=== PATIENT | male | born 1945 | race Caucasian/White ===

== ENCOUNTER 2020-07-07 12:10 | Emergency (ER) | payer MEDICARE, SELFPAY ==
--- NOTE | ~2020-07-07 | XR_ITS ---
EXAMINATION: XR chest 1V DATE: 07/07/2020 13:23 INDICATION: Hypertension. Arm pain. TECHNIQUE: PA view of the chest was obtained. COMPARISON: Chest radiograph dated 11/10/2010 FINDINGS: Small calcified nodule at the lateral right midlung zone consistent with old granulomatous disease. N o focal airspace opacities, pulmonary edema, pleural effusion or pneumothorax. The cardiomediastinal silhouette is normal. Prominent hypertrophic change at the bilateral acromioclavicular joints and at the right first costomanubrial articulation. Mild lower thoracic levocurvature. IMPRESSION: 1. No acute cardiopulmonary disease. Reviewed, dictated and finalized at location A. GN PRINTER BALLOON
--- NOTE | ~2020-07-07 | XR_ITS ---
XR_CERV2-3V_CR DATE: 07/07/2020 13:23 INDICATION: Neck pain radiating to left arm TECHNIQUE: AP, open-mouth, odontoid and lateral views COMPARISON: None FINDINGS: There is straightening of the cervical spine. Diffuse osteopenia. C1 and C2 are normally aligned and the odontoid process is intact. No fracture or dislocation or lock ed facet or prevertebral soft tissue swelling. There is minimal anterolisthesis at C4-5. There is degenerative spurring of the mid and lower cervica l spine but the cervical interspaces are well preserved. There is extensive degenerative change of the apophyseal joints of the cervical spine. Uncovertebral joint spurring is noted at C5-6. IMPRESSION: Straightening Diffuse osteopenia Degenerative changes involving particularly the apophyseal joints throughout the cervical spine and u ncovertebral joints at C5-6 Reviewed, dictated and finalized at [facility]. Reviewed, dictated and finalized at location A. TECH IMPRESSION: Straightening Diffuse osteopenia Degenerative changes involving particularly the apophyseal joints throughout th e cervical spine and uncovertebral joints at C5-6
[2020-07-07 12:24] VITALS: BP 149/63; PULSE 56; RESP 18; TEMP 36.6; O2SAT 97
--- NOTE | 2020-07-07 12:27 | ECG_ITS ---
Measurements Intervals [place] Rate: 55 P: 36 NV: 170 QRS: 29 QRSD: 84 T: 60 QT: 379 QTc: 364 Interpretive Statements SINUS BRADYCARDIA BORDERLINE ST-T WAVE ABNORMALITY- HIGH LATERAL LEADS BASELINE WANDER- I, II BORDERLINE ECG Electronically Signed On 07-07-2020 14:30:51 FIRER BOILER by Desean Diaz D.O.
--- NOTE | 2020-07-07 12:58 | ED.GENADULT ---
HPI - General Adult General Chief complaint: Extremity Problem,Nontraumatic Stated complaint: left arm pain Time Seen by Provider: 07/07/20 12:28 History of Present Illness HPI narrative: Patient is a 75-year-old male who presents to the ER with left arm pain. Occurring for the last 3 days. Intermittent and last 2 seconds at a time. Starts in the forearm and radiates up. No exertional component. Occurs at rest. Also reports that it occurs when he moves his arm at times. No known trauma. Denies any relief with Tylenol. No chest pain or chest pressure. He is on peritoneal dialysis. Reports he excellently inserted some air into his line about a week ago and felt some discomfort in his right shoulder but that was different than this. He has had no additional dialysis issues. Related Data Allergies Allergy/AdvReac Type Severity Reaction Status Date / Time Penicillins Allergy Mild Verified 02/15/17 18:13 Review of Systems Review of Systems: All systems reviewed & are unremarkable except as noted in HPI and below Constitutional: Constitutional: Denies chills, Denies fever(s) and Denies weakness ENT: Denies nasal congestion and Denies sore throat Cardiovascular: Cardiovascular: Denies chest pain, Denies rapid heart rate and Denies radiating jaw, neck or arm pain Respiratory: Respiratory: Denies cough, Denies dyspnea and Denies wheezing Gastrointestinal: Gastrointestinal: Denies abdominal pain, Denies nausea and Denies vomiting Musculoskeletal: Musculoskeletal: Denies arthralgias, Denies joint swelling and Reports muscle cramps PMFSH Past Medical History Medical History (Updated 07/07/20 @ 15:11 by Carlos Ureña MD) ESRD (end stage renal disease) Hyperlipidemia Hypertension Peritoneal dialysis catheter in place Social History Social History (Updated 07/07/20 @ 13:08 by Carlos Ureña MD) Smoking status: Never smoker Exam Narrative: Exam Narrative: GENERAL: Well-appearing, well-nourished, and in no acute distress. HEAD: Normocephalic, atraumatic. NECK: Supple. Mild left paraspinal muscular tenderness. CHEST: Clear to auscultation. No respiratory distress. HEART: Bradycardic and regular. Normal peripheral pulses. ABDOMEN: Soft, nontender, nondistended. Back: No midline or paraspinal tenderness. EXTREMITIES: Normal range of motion. No edema. NEURO: Alert and oriented x3. PSYCH: Normal mood and affect. Course Course Emergency Course: Patient resting comfortably, no additional concerns. No recurrence of pain here. Informed of results. reports he is taking medication to lower his potassium at home. Instructed her to discontinue the medication and contact his nurseryperson. Verbalized understanding. Discharge home. Vital Signs Vital signs: Vital Signs Temperature 97.9 F 07/07/20 12:24 Pulse Rate 56 L 07/07/20 12:24 Respiratory Rate 18 07/07/20 12:24 Blood Pressure 149/63 H 07/07/20 12:24 Pulse Oximetry 97 07/07/20 12:24 Temperature 97.9 F 07/07/20 12:24 Pulse Rate 56 L 07/07/20 14:57 Respiratory Rate 18 07/07/20 14:57 Blood Pressure 132/78 07/07/20 14:57 Pulse Oximetry 99 07/07/20 14:57 Medical Decision Making Vital Signs Vital Signs: Vital Signs Temperature 97.9 F 07/07/20 12:24 Pulse Rate 56 L 07/07/20 12:24 Respiratory Rate 18 07/07/20 12:24 Blood Pressure 149/63 H 07/07/20 12:24 Pulse Oximetry 97 07/07/20 12:24 Temperature 97.9 F 07/07/20 12:24 Pulse Rate 56 L 07/07/20 14:57 Respiratory Rate 18 07/07/20 14:57 Blood Pressure 132/78 07/07/20 14:57 Pulse Oximetry 99 07/07/20 14:57 Lab Data Labs: Lab Results 07/07/20 07/07/20 07/07/20 Range/Units 12:45 12:45 12:45 WBC 6.9 (4.5-10.0) K/mm3 RBC 2.58 L (4.6-6.20) M/mm3 Hgb 8.3 L (14.0-18.0) g/dL Hct 25.6 L (42.0-52.0) % MCV 99.2 (80-100) fl MCH 32.2 (26-34) pg MCHC 32.4 (32-36) g/dl RDW 13.9 (11.5-14.5) %
[2020-07-07 13:04] LABS: Carbon Dioxide 30 mmol/L (22-30); Chloride 101 mmol/L (98-107)
[2020-07-07 13:08] LABS: Anion Gap 8 mmol/L (8-16); Blood Urea Nitrogen 62 mg/dL (9-20); Calcium 9.3 mg/dL (8.4-10.2); Estimated CRCL calculation 5 ml/min; Estimated Glomerular Filt Rate 5; Glucose 149 mg/dL (75-110); Sodium 139 mmol/L (137-145)
[2020-07-07 13:19] LABS: Troponin I 0.017 ng/mL (0.000-0.034)
[2020-07-07 13:21] LABS: Basophils Percent Auto 0.3 % (0.2-1.2); Eosinophils Absolute Auto 0.2 K/mm3 (0-0.3); Eosinophils Percent Auto 2.6 % (0-4.4); Hematocrit 25.6 % (42.0-52.0); Hemoglobin 8.3 g/dL (14.0-18.0); Immature Granulocyte Absolute 0.03 K/mm3 (0.00-0.031); Immature Granulocyte Percent A 0.4 % (0-0.5); Lymphocytes Absolute Auto 1.37 K/mm3 (0.9-3.2); Lymphocytes Percent Auto 19.8 % (18.3-44.2); Mean Corpuscular HGB Conc 32.4 g/dl (32-36); Mean Corpuscular Hemoglobin 32.2 pg (26-34); Mean Corpuscular Volume 99.2 fl (80-100); Monocytes Absolute Auto 0.5 K/mm3 (0.1-0.6); Monocytes Percent Auto 7.5 % (2.6-8.5); Neutrophils Absolute Auto 4.8 K/mm3 (1.3-6.7); Neutrophils Percent Auto 69.4 % (45.5-73.1); Platelet Count Result 188 k/mm3 (150-375); Red Blood Count 2.58 M/mm3 (4.6-6.20); Red Cell Distribution Width 13.9 % (11.5-14.5); White Blood Count 6.9 K/mm3 (4.5-10.0)
[2020-07-07 13:24] LABS: Prothrombin Time 14.2 Seconds (11.1-14.7)
[2020-07-07 13:25] LABS: Partial Thromboplastin Time 28.7 SECONDS (22.3-36.8)
[2020-07-07 14:57] VITALS: BP 132/78; PULSE 56; RESP 18; O2SAT 99
[2020-07-07 15:43] VITALS: BP 147/68; PULSE 55; RESP 18; O2SAT 99
== END 2020-07-07 15:44 | disposition home or self-care (01) ==
PROVIDERS: Emergency Provider Emergency Medicine
DX: E87.6 Hypokalemia (principal); D64.9 Anemia, unspecified; M54.12 Radiculopathy, cervical region; R00.1 Bradycardia, unspecified; I12.0 Hypertensive chronic kidney disease with stage 5 chronic kidney disease or end stage renal disease; N18.6 End stage renal disease; Z99.2 Dependence on renal dialysis
CPT/HCPCS: 36415; 71045; 72040; 80048; 84484; 85025; 85610; 85730; 93005; 99284

== ENCOUNTER 2020-07-28 16:56 | Emergency (ER) | payer MEDICARE, SELFPAY ==
[2020-07-28] VITALS (8 sets, daily range): BP systolic 152–176; BP diastolic 70–87; PULSE 63–67; RESP 14–20; TEMP 37.2; O2SAT 96–97
--- NOTE | ~2020-07-28 | XR_ITS ---
EXAMINATION: XR chest 2V DATE: 07/28/2020 17:35 INDICATION: Shortness of breath TECHNIQUE: AP and lateral views of the chest are obtained. COMPARISON: 07/07/2020 FINDINGS: There are airspace opacities of the lung bases and left midlung zone. There is no pleural e ffusion or pneumothorax. The cardiomediastinal silhouette is normal. There is moderate thoracic spond ylosis. A calcified nodule of the right upper lobe is consistent with old granulomatous disease. IMPRESSION: 1. Airspace opacities of the lung bases and left midlung zone which could reflect atelectasis versus pneumonia versus pulmonary edema. Reviewed, dictated and finalized at location A. CAR OPERATOR IMPRESSION: 1. Airspace opacities of the lung bases and left midlung zone which could refle ct atelectasis versus pneumonia versus pulmonary edema.
--- NOTE | 2020-07-28 17:05 | ECG_ITS ---
Measurements Intervals [place] Rate: 64 P: 15 AR: 159 QRS: -5 QRSD: 90 T: 67 QT: 322 QTc: 333 Interpretive Statements SINUS RHYTHM BASELINE ARTIFACT- II, III, AVL, AVF, V5-V6 NORMAL ECG Electronically Signed On 07-28-2020 17:18:03 ALARM FIELD TECHNICIAN by Desean Diaz D.O.
[2020-07-28 17:24] LABS: Eosinophils Percent Auto 0.4 % (0-4.4); Hematocrit 28.7 % (42.0-52.0); Hemoglobin 9.4 g/dL (14.0-18.0); Immature Granulocyte Absolute 0.01 K/mm3 (0.00-0.031); Immature Granulocyte Percent A 0.4 % (0-0.5); Lymphocytes Absolute Auto 0.93 K/mm3 (0.9-3.2); Lymphocytes Percent Auto 33.8 % (18.3-44.2); Mean Corpuscular HGB Conc 32.8 g/dl (32-36); Mean Corpuscular Hemoglobin 30.9 pg (26-34); Mean Corpuscular Volume 94.4 fl (80-100); Mean Platelet Volume 10.5 fl (7.4-10.4); Monocytes Absolute Auto 0.3 K/mm3 (0.1-0.6); Monocytes Percent Auto 10.2 % (2.6-8.5); Neutrophils Absolute Auto 1.5 K/mm3 (1.3-6.7); Neutrophils Percent Auto 55.2 % (45.5-73.1); Platelet Count Result 135 k/mm3 (150-375); Red Blood Count 3.04 M/mm3 (4.6-6.20); Red Cell Distribution Width 13.5 % (11.5-14.5); White Blood Count 2.8 K/mm3 (4.5-10.0)
[2020-07-28 17:38] LABS: Anion Gap 7 mmol/L (8-16); Blood Urea Nitrogen 74 mg/dL (9-20); Calcium 8.7 mg/dL (8.4-10.2); Carbon Dioxide 29 mmol/L (22-30); Chloride 97 mmol/L (98-107); Estimated CRCL calculation 3 ml/min; Estimated Glomerular Filt Rate 4; Glucose 128 mg/dL (75-110); Potassium 3.5 mmol/L (3.4-5.0); Sodium 133 mmol/L (137-145)
--- NOTE | 2020-07-28 20:09 | ED.GENADULT ---
HPI - General Adult General Chief complaint: Shortness of Breath/Dyspnea <Reema Casillas PA-C - Last Filed: 07/28/20 20:26> Stated complaint: SOB <Reema Casillas PA-C - Last Filed: 07/28/20 20:26> Time Seen by Provider: 07/28/20 18:37 <Reema Casillas PA-C - Last Filed: 07/28/20 20:26> Source: patient <GUERRERO Becker Last Filed: 07/28/20 20:26> Mode of arrival: ambulatory <GUERRERO Becker Last Filed: 07/28/20 20:26> Limitations: no limitations <GUERRERO Becker Last Filed: 07/28/20 20:26> History of Present Illness HPI narrative: Patient in end-stage renal failure presents with chief complaint of feeling short of breath today and speaking with his dialysis nurse who instructed him to present to the emergency department for evaluation. Patient normally does home peritoneal dialysis and is due for treatment today. He states he however came to the emergency department before completing his treatment as he wanted to be evaluated. Patient states he is also noticed having some fatigue with exertion. He denies swelling to his extremities, chest pain, fever, chills nausea vomiting or diarrhea. Patient denies loss of taste or smell. <Reema Casillas PA-C - Last Filed: 07/28/20 20:26> Related Data Allergies/adverse reactions: Allergies Allergy/AdvReac Type Severity Reaction Status Date / Time Penicillins Allergy Mild Unknown Verified 07/28/20 18:40 <Reema Casillas PA-C - Last Filed: 07/28/20 20:26> Review of Systems Review of Systems: Narrative: CONSTITUTIONAL: Reports fatigue denies fever, chills, or sweats. EYES: Denies visual changes, redness, or discharge. ENT: Denies rhinorrhea, congestion, sore throat, or otalgia. CARDIOVASCULAR: Denies chest pain, palpitations, or edema. RESPIRATORY: Reports dyspnea worse with exertion denies cough GASTROINTESTINAL: Denies abdominal pain, nausea, vomiting, or diarrhea. GENITOURINARY: Denies dysuria or hematuria. SKIN: Denies rash or itching. MUSCULOSKELETAL: Denies back pain, joint pain, or myalgia. NEUROLOGIC: Denies headache, numbness, dizziness, or weakness. PSYCHIATRIC: Denies anxiety or depression. <Reema Casillas PA-C - Last Filed: 07/28/20 20:26> PMFSH Past Medical History Medical History: Medical History (Updated 07/28/20 @ 20:16 by Reema Casillas PA-C) ESRD (end stage renal disease) Hyperlipidemia Hypertension Peritoneal dialysis catheter in place <Reema Casillas PA-C - Last Filed: 07/28/20 20:26> Social History Social History: Social History (Updated 07/07/20 @ 13:08 by Carlos Ureña MD) Smoking status: Never smoker <Reema Casillas PA-C - Last Filed: 07/28/20 20:26> Exam Narrative: Exam Narrative: GENERAL: Well-appearing, well-nourished, and in no acute distress. HEAD: Normocephalic, atraumatic. EYES: PERRLA and EOMI. NECK: Supple. No adenopathy or masses. CHEST: Clear to auscultation, slightly less air movement lower left. No respiratory distress. No crackles wheezes rales or rhonchi HEART: Regular rate and rhythm. No murmur heard. Normal peripheral pulses. ABDOMEN: Peritoneal dialysis cath noted to abdomen. No abdominal tenderness with palpation.soft, nontender, nondistended, normal active bowel sounds. EXTREMITIES: Normal range of motion. No edema. SKIN: Warm, dry, no rash. NEURO: No focal deficits. Alert and oriented x3. PSYCH: Normal mood and affect. <Reema Casillas PA-C - Last Filed: 07/28/20 20:26> Course Vital Signs Vital signs: Vital Signs Temperature 99.0 F 07/28/20 17:03 Pulse Rate 65 07/28/20 17:03 Respiratory Rate 18 07/28/20 17:03 Blood Pressure 154/70 H 07/28/20 17:03 Pulse Oximetry 96 07/28/20 17:03 Temperature 99.0 F 07/28/20 17:03 Pulse Rate 64 07/28/20 19:24 Respiratory Rate 14 07/28/20 19:24 Blood Pressure 152/85 H 07/28/20 19:24 Pulse Oximetry 97 07/28/20 19:24 <Reema Casillas PA-C - Last Filed
== END 2020-07-28 20:41 | disposition home or self-care (01) ==
PROVIDERS: Emergency Provider General Practice
DX: J18.9 Pneumonia, unspecified organism (principal); I12.0 Hypertensive chronic kidney disease with stage 5 chronic kidney disease or end stage renal disease; N18.6 End stage renal disease; Z99.2 Dependence on renal dialysis
CPT/HCPCS: 36415; 71046; 80048; 85025; 93005; 99284

== ENCOUNTER 2021-01-05 17:43 | Emergency (ER) | payer MEDICARE, SELFPAY ==
--- NOTE | ~2021-01-05 | XR_ITS ---
EXAMINATION: XR elbow LT min 3V EXAM DATE: 01/05/2021 18:50 INDICATION: Pain swelling post Lt elbow; no recent injury. Reportedly history of multiple elbow fract ures. TECHNIQUE: Left elbow frontal, lateral with flexion, and oblique projections obtained and reviewed. There is no prior study for comparison. FINDINGS: There is moderate left elbow osteoarthritis, probably secondary to trauma, prior fractures . There is evidence of large elbow joint effusion. There are no acute fractures identified. No radiop aque foreign bodies identified. IMPRESSION: 1. Large left elbow joint effusion. 2. Moderate osteoarthritis. Reviewed, dictated and finalized at location A.
[2021-01-05 18:15] VITALS: BP 134/90; PULSE 63; RESP 14; TEMP 37.3; O2SAT 99
[2021-01-05] MEDS: predniSONE 20 MG TABLET 40 MG PO (18:56)
[2021-01-05] MEDS: COLCHICINE 0.6 MG TABLET 1.2 MG PO (18:56)
[2021-01-05 19:18] LABS: Basophils Percent Auto 0.3 % (0.2-1.2); Eosinophils Absolute Auto 0.2 K/mm3 (0-0.3); Eosinophils Percent Auto 2.9 % (0-4.4); Hematocrit 29.1 % (42.0-52.0); Hemoglobin 9.3 g/dL (14.0-18.0); Immature Granulocyte Absolute 0.02 K/mm3 (0.00-0.031); Immature Granulocyte Percent A 0.3 % (0-0.5); Lymphocytes Percent Auto 25.1 % (18.3-44.2); Mean Platelet Volume 10.4 fl (7.4-10.4); Monocytes Absolute Auto 0.8 K/mm3 (0.1-0.6); Monocytes Percent Auto 9.6 % (2.6-8.5); Neutrophils Absolute Auto 4.9 K/mm3 (1.3-6.7); Neutrophils Percent Auto 61.8 % (45.5-73.1); Platelet Count Result 164 k/mm3 (150-375); Red Blood Count 2.91 M/mm3 (4.6-6.20)
[2021-01-05 19:31] LABS: Anion Gap 11 mmol/L (8-16); Blood Urea Nitrogen 75 mg/dL (9-20); CRP 0.7 mg/dL (<1.0); Calcium 9.2 mg/dL (8.4-10.2); Carbon Dioxide 22 mmol/L (22-30); Chloride 104 mmol/L (98-107); Estimated CRCL calculation 4 ml/min; Estimated Glomerular Filt Rate 4; Glucose 181 mg/dL (75-110); Potassium 4.9 mmol/L (3.4-5.0); Sodium 137 mmol/L (137-145); Uric Acid 4.5 mg/dL (3.5-8.5)
[2021-01-05 19:41] LABS: Erythrocyte Sedimentation Rate 84 mm/hr (0-20)
--- NOTE | 2021-01-05 19:57 | ED.GENADULT ---
HPI - General Adult General Chief complaint: Extremity Problem,Nontraumatic Stated complaint: elbow swelling Time Seen by Provider: 01/05/21 18:24 Source: patient, family and RN notes reviewed Mode of arrival: ambulatory Limitations: no limitations History of Present Illness HPI narrative: Patient is a 75-year-old male who presents with bilateral elbow issues patient notes that he woke today with a swollen tender right posterior elbow also noting a swollen left elbow joint denies any injury or trauma or similar occurrence in the past has not taken anything for his symptoms patient notes that the left elbow is more swollen and tender patient has not taken anything for his symptoms Related Data Allergies Allergy/AdvReac Type Severity Reaction Status Date / Time Penicillins Allergy Mild Unknown Verified 01/05/21 18:28 Review of Systems Review of Systems: All systems reviewed & are unremarkable except as noted in HPI and below PMFSH Past Medical History Medical History ESRD (end stage renal disease) Hyperlipidemia Hypertension Peritoneal dialysis catheter in place Social History Social History Smoking status: Never smoker Exam Narrative: Exam Narrative: GENERAL: Well-appearing, well-nourished, and in no acute distress. HEAD: Normocephalic, atraumatic. EYES: PERRLA and EOMI. ENT: Nares clear, no rhinorrhea or epistaxis. Mucous membranes moist. CHEST: Clear to auscultation. No respiratory distress. No wheezes rales or rhonchi HEART: Regular rate and rhythm. No murmur heard. Normal peripheral pulses. EXTREMITIES: Tenderness and swelling of the left elbow joint without any erythema or warmth to touch. Tenderness and swelling of the left olecranon without erythema or warmth to touch SKIN: Warm, dry, no rash. NEURO: No focal deficits. Alert and oriented x3. Neurovascularly intact. Capillary refill less than 2 seconds PSYCH: Normal mood and affect. Course Course Emergency Course: Patient evaluated the emergency department for bilateral elbow issues 1 which is olecranon bursitis the other which is a swollen elbow joint with history of prior fracture and osteoarthritis. Neither elbow joint is erythematous. 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 Patient is agreeing with this plan Consultations Consultation #1: Discussed case with Dr. Loja orthopedic surgeon who agrees we can have the patient follow-up on outpatient basis provided with reasons to return Date: 01/05/21 Time: 20:39 Vital Signs Vital signs: Vital Signs Temperature 99.1 F 01/05/21 18:15 Pulse Rate 63 01/05/21 18:15 Respiratory Rate 14 01/05/21 18:15 Blood Pressure 134/90 01/05/21 18:15 Pulse Oximetry 99 01/05/21 18:15 Temperature 99.1 F 01/05/21 18:15 Pulse Rate 63 01/05/21 18:15 Respiratory Rate 14 01/05/21 18:15 Blood Pressure 134/90 01/05/21 18:15 Pulse Oximetry 99 01/05/21 18:15 Medical Decision Making Vital Signs Vital Signs: Vital Signs Temperature 99.1 F 01/05/21 18:15 Pulse Rate 63 01/05/21 18:15 Respiratory Rate 14 01/05/21 18:15 Blood Pressure 134/90 01/05/21 18:15 Pulse Oximetry 99 01/05/21 18:15 Temperature 99.1 F 01/05/21 18:15 Pulse Rate 63 01/05/21 18:15 Respiratory Rate 14 01/05/21 18:15 Blood Pressure 134/90 01/05/21 18:15 Pulse Oximetry 99 01/05/21 18:15 Lab Data Result diagrams: 01/05/21 19:12 01/05/21 19:12 Labs: Lab Results 01/05/21 01/05/21 Range/Units 19:12 19:12 WBC 8.0 (4.5-10.0) K/mm3 RBC 2.91 L (4.6-6.20) M/mm3 Hgb 9.3 L (14.0-18.0) g/dL Hct 29.1 L (42.0-52.0) % MCV 100.0 (80-100) fl MCH 32.0 (26-34)
[2021-01-05 20:48] VITALS: BP 134/85; PULSE 64; RESP 16; TEMP 36.8; O2SAT 97
== END 2021-01-05 20:49 | disposition home or self-care (01) ==
PROVIDERS: Emergency Medicine Emergency Medical Services; Emergency Provider Emergency Medicine
DX: M25.422 Effusion, left elbow (principal); M70.31 Other bursitis of elbow, right elbow; I12.0 Hypertensive chronic kidney disease with stage 5 chronic kidney disease or end stage renal disease; N18.6 End stage renal disease; E78.5 Hyperlipidemia, unspecified
CPT/HCPCS: 36415; 73080; 80048; 84550; 85025; 85652; 86140; 99283; A9270; J7512

== ENCOUNTER 2021-03-17 13:53 | Emergency (ER) | payer MEDICARE, SELFPAY ==
--- NOTE | ~2021-03-17 | XR_ITS ---
EXAMINATION: XR knee RT 3V DATE: 03/17/2021 14:36 INDICATION: Right knee pain and swelling. TECHNIQUE: 3 views of right knee were obtained. COMPARISON: None. FINDINGS: Bone alignment is normal. No fracture. There is mild tricompartmental osteoarthritis charac terized by tiny marginal osteophytes. No joint space narrowing. There is a moderate-sized knee joint effusion. IMPRESSION: 1. Mild right knee osteoarthritis. 2. Moderate-sized right knee joint effusion. Reviewed, dictated and finalized at location A.
[2021-03-17 13:55] VITALS: BP 139/69; PULSE 60; RESP 16; TEMP 36.2; O2SAT 99
--- NOTE | 2021-03-17 15:09 | ED.LOWEXIN ---
HPI - Extremity Injury (Lower) General Chief Complaint: Extremity Injury, Lower Stated Complaint: R Knee Swelling Time Seen by Provider: 03/17/21 14:01 History of Present Illness HPI Narrative: Patient is a 75-year-old male who presents ER with swelling to the right knee. Ongoing over the last 2 weeks. No known trauma. No redness. No fevers or chills or sweats. No loss of function. Denies numbness or tingling. Has history of gout but this feels different. Located over the medial aspect superior to the knee joint. Related Data Allergies Allergy/AdvReac Type Severity Reaction Status Date / Time Penicillins Allergy Mild Unknown Verified 01/05/21 18:28 Review of Systems Review of Systems: All systems reviewed & are unremarkable except as noted in HPI and below Constitutional: Constitutional: Denies chills and Denies fever(s) Musculoskeletal: Musculoskeletal: Denies arthralgias, Reports joint swelling and Denies muscle cramps Integumentary/Breasts: Skin/Breast: Denies pruritus and Denies rash Neurologic: Denies focal weakness and Denies numbness PMFSH Past Medical History Medical History ESRD (end stage renal disease) Hyperlipidemia Hypertension Peritoneal dialysis catheter in place Social History Social History Smoking status: Never smoker Exam Narrative: GENERAL: Well-appearing, well-nourished, and in no acute distress. HEAD: Normocephalic, atraumatic. EXTREMITIES: Right lower extremity with slight effusion to the knee with tenderness superior and medial to the knee joint. No bruising or redness. No tenderness of the patella or the joint line. Ligamentously intact. SKIN: Warm, dry, no rash. NEURO: Alert and oriented x3. PSYCH: Normal mood and affect. Course Course Emergency Course: Patient walked out without paperwork but his daughter stayed behind. Discussed with the that he had some swelling likely related to his arthritis and potentially a quadricep strain. Verbalized understanding. Vital Signs Vital signs: Vital Signs Temperature 97.2 F L 03/17/21 13:55 Pulse Rate 60 03/17/21 13:55 Respiratory Rate 16 03/17/21 13:55 Blood Pressure 139/69 03/17/21 13:55 Pulse Oximetry 99 03/17/21 13:55 Temperature 97.2 F L 03/17/21 13:55 Pulse Rate 60 03/17/21 13:55 Respiratory Rate 16 03/17/21 13:55 Blood Pressure 139/69 03/17/21 13:55 Pulse Oximetry 99 03/17/21 13:55 MDM - Extremity Injury (Lower) Imaging Data Radiologist's impression: ITS Impressions Knee X-Ray 03/17/21 14:37 IMPRESSION: 1. Mild right knee osteoarthritis. 2. Moderate-sized right knee joint effusion. Discharge Plan Discharge Clinical Impression: Effusion of knee joint right Patient Disposition: Home, Self-Care Condition: Stable Instructions: Knee Pain (ED) Additional Instructions: Apply ice to the swollen area of your knee that is tender, also elevated, and you may purchase an [id number] knee brace to help with your discomfort. Take Tylenol for pain since you cannot take any anti-inflammatory medication. Return to the ER if your knee is red and hot, you have fever over 100.4 ?F, you have additional concerns. Prescriptions: No Action acetaminophen [Tylenol Arthritis Pain] 650 mg tablet extended release 650 mg PO Q12H PRN (Reason: pain) Qty: 10 RF: 0 doxycycline hyclate 100 mg capsule 100 mg PO BID Qty: 14 RF: 0 Follow-up/Referrals: PHYSICIAN NOT ON STAFF,NONSTAFF [Primary Care Provider] - 1 Week
== END 2021-03-17 15:16 | disposition home or self-care (01) ==
PROVIDERS: Emergency Provider Emergency Medicine
DX: M25.461 Effusion, right knee (principal); I12.0 Hypertensive chronic kidney disease with stage 5 chronic kidney disease or end stage renal disease; N18.6 End stage renal disease; Z99.2 Dependence on renal dialysis; M17.11 Unilateral primary osteoarthritis, right knee
CPT/HCPCS: 73562; 99283

== ENCOUNTER 2021-11-25 12:15 | Inpatient (IN) | payer MEDICARE, SELFPAY ==
[2021-11-25] VITALS (32 sets, daily range): BP systolic 120–174; BP diastolic 51–81; PULSE 59–76; RESP 10–23; TEMP 36.2–37.4; O2SAT 97–100; BMI 26.5
--- NOTE | ~2021-11-25 | XR_ITS ---
XR chest 2V 11/25/2021 13:11 Indication: Weakness. Emesis. Procedure: 2 view chest Comparison: 07/28/2020 Findings: There are chronic infiltrates of the mid and lower lungs. Heart size is normal. There is at herosclerosis and ectasia of the aorta. No acute osseous abnormality. Calcified granuloma right upper thorax. There is atherosclerosis of the aorta. No focal air space disease, pulmonary edema, pleural effusion or suspected pneumothorax. Impression: 1: No acute cardiopulmonary disease. Reviewed, dictated and finalized at location B. Impression: 1: No acute cardiopulmonary disease.
--- NOTE | 2021-11-25 12:21 | ECG_ITS ---
Measurements Intervals [place] Rate: 61 P: 188 OR: 164 QRS: 165 QRSD: 82 T: 123 QT: 399 QTc: 405 Interpretive Statements SINUS RHYTHM LIMB LEAD REVERSAL BASELINE ARTIFACT- I, III, AVL ATYPICAL ECG Electronically Signed On 11-25-2021 13:04:13 CDT by Desean Diaz D.O.
[2021-11-25 12:44] LABS: Basophils Percent Auto 0.3 % (0.2-1.2); Eosinophils Absolute Auto 0.5 K/mm3 (0-0.3); Eosinophils Percent Auto 5.6 % (0-4.4); Immature Granulocyte Absolute 0.06 K/mm3 (0.00-0.031); Immature Granulocyte Percent A 0.7 % (0-0.5); Lymphocytes Absolute Auto 1.86 K/mm3 (0.9-3.2); Lymphocytes Percent Auto 21.4 % (18.3-44.2); Mean Corpuscular HGB Conc 31.6 g/dl (32-36); Mean Corpuscular Hemoglobin 32.9 pg (26-34); Mean Corpuscular Volume 104.1 fl (80-100); Mean Platelet Volume 10.5 fl (7.4-10.4); Monocytes Absolute Auto 0.6 K/mm3 (0.1-0.6); Monocytes Percent Auto 6.6 % (2.6-8.5); Neutrophils Absolute Auto 5.7 K/mm3 (1.3-6.7); Neutrophils Percent Auto 65.4 % (45.5-73.1); Platelet Count Result 200 k/mm3 (150-375); Red Blood Count 1.46 M/mm3 (4.6-6.20); Red Cell Distribution Width 13.8 % (11.5-14.5); White Blood Count 8.7 K/mm3 (4.5-10.0)
[2021-11-25 12:47] LABS: Hematocrit 15.2 % (42.0-52.0); Hemoglobin 4.8 g/dL (14.0-18.0)
[2021-11-25 12:58] LABS: Alanine Aminotransferase 13 U/L (6-50); Albumin Level 2.9 g/dL (3.5-5.1); Alkaline Phosphatase 53 U/L (38-126); Anion Gap 9 mmol/L (8-16); Aspartate Amino Transferase 16 U/L (17-59); Bilirubin,Total 0.1 mg/dL (0.2-1.3); Blood Urea Nitrogen 83 mg/dL (9-20); Carbon Dioxide 26 mmol/L (22-30); Chloride 98 mmol/L (98-107); Estimated CRCL calculation 4 ml/min; Estimated Glomerular Filt Rate 4; Glucose 127 mg/dL (65-110); Potassium 3.9 mmol/L (3.4-5.0); Sodium 133 mmol/L (137-145)
[2021-11-25 13:48] LABS: Add Urine Microscopic? YES; Appearance Urine Clear (Clear); Bilirubin Urine Negative (Negative); Blood Urine 1+ (Negative); Color Urine Yellow (Yellow); Glucose Urine UA Trace mg/dL (Negative); Ketones Urine Negative (Negative); Leukocyte Esterase Ur Trace LEU/UL (Negative); Nitrate Urine Negative (Negative); Protein Urine 2+ mg/dL (Negative); Specific Grav Ur 1.015 (1.001-1.035); Urobilinogen Urine 0.2 mg/dL (<2.0)
[2021-11-25 14:01] LABS: Bacteria Urine Trace /hpf; Mucus Urine Rare /lpf; RBC Urine 0-2 /hpf (0-2); Squamous Epithelial Cell Urine Occasional /hpf (Few); WBC Urine 0-3 /hpf
[2021-11-25] MEDS: SODIUM CHLORIDE 0.9% IV 250 ML 30 ML IV CONT (14:21)
[2021-11-25] MEDS: PANTOPRAZOLE SODIUM IV 40 MG VIAL IV PUSH ×2 (14:21→18:04)
[2021-11-25 14:22] LABS: INR 1.2; Partial Thromboplastin Time 27.2 SECONDS (22.3-36.8); Prothrombin Time 14.7 Seconds (11.1-14.7)
--- NOTE | 2021-11-25 14:24 | ED.WEAKNESS ---
HPI - Weakness General Chief complaint: Weakness Stated complaint: weakness/ throwing up Time Seen by Provider: 11/25/21 13:24 Source: patient, family and RN notes reviewed Mode of arrival: wheelchair Limitations: no limitations History of Present Illness HPI Narrative: This is a 76 year old male with history of ESRD on dialysis who presents for evaluation of weakness. Patient developed nausea with coffee ground emesis on Sunday. He also reports having dark stools on Sunday but states he has not bowel movement since. He reports intermittent nausea. He had abdominal discomfort on Sunday but he denies any pain currently. He denies chest pain but he reports shortness of breath with exertion. Patient denies fever or chills. Patient is here due to extreme weakness since Sunday. HE has been doing is nightly peritoneal dialysis. He denies history of PUD in the past. Related Data Home Medications Medication Instructions Recorded Confirmed allopurinol 100 mg PO DAILY 11/25/21 11/25/21 amlodipine 10 mg PO DAILY 11/25/21 11/25/21 aspirin 81 mg PO DAILY 11/25/21 11/25/21 diclofenac sodium 100 mg PO DAILY 11/25/21 11/25/21 docusate sodium 200 mg PO DAILY 11/25/21 11/25/21 escitalopram oxalate 10 mg PO DAILY 11/25/21 11/25/21 ferric citrate [Auryxia] 210 mg PO DAILY 11/25/21 11/25/21 furosemide 80 mg PO BID 11/25/21 11/25/21 lisinopril 40 mg PO DAILY 11/25/21 11/25/21 metoprolol succinate 100 mg PO DAILY 11/25/21 11/25/21 patiromer calcium sorbitex 8.4 g PO DAILY 11/25/21 11/25/21 [Veltassa] temazepam 30 mg PO HS PRN 11/25/21 11/25/21 Allergies Allergy/AdvReac Type Severity Reaction Status Date / Time Penicillins Allergy Mild Unknown Verified 11/25/21 14:41 Review of Systems Review of Systems: All systems reviewed & are unremarkable except as noted in HPI and below Constitutional: Constitutional: Denies chills, Reports fatigue and Denies fever(s) Cardiovascular: Cardiovascular: Denies chest pain, Denies rapid heart rate and Denies radiating jaw, neck or arm pain Respiratory: Respiratory: Denies cough and Reports dyspnea Gastrointestinal: Gastrointestinal: Reports abdominal pain, Reports diarrhea, Reports nausea and Reports vomiting Neurologic: Denies headache(s) [facility] Past Medical History Medical History ESRD (end stage renal disease) Hyperlipidemia Hypertension Peritoneal dialysis catheter in place Family History Family History (Updated 11/25/21 @ 18:40 by Marcy Hinkle RN) Father Cardiovascular disease Mother Asthma Social History Social History Smoking status: Never smoker Alcohol intake: current Substance use: current Spiritual care concerns: Yes Exam Const: General: no acute distress and alert Orientation/consciousness: patient oriented x3 Eyes: EOM: EOMs intact bilaterally Chest: Chest palpation & inspection: normal inspection of the chest Resp: Effort & Inspection: normal respiratory effort and no retractions Auscultation: clear to auscultation bilaterally Cardio: Rate: regular rate Rhythm: regular rhythm Heart sounds: no murmurs GI: GI Palp: Yes Soft to palpation, No Tenderness to palpation present (GI) and No Guarding due to palpation present (GI) Auscultation: normal bowel sounds Rectal Exam: heme positive stool Back/Spine/Pelvis: Back: no CVA tenderness Skin: General skin exam: normal color Rashes: no rashes Neuro: General: patient oriented x3, moves all extremities and CN's II-XI intact bilaterally Extrem: General: normal to inspection Psych: Mental Status: mental status grossly normal Affect: normal affect Course Reevaluation(s) Reevaluation #1: I discussed with patient and family that patient will be admitted due to anemia. His baseline hemoglobin is 9 and today he is 4.8 likely due to UGI bleed on Sunday. He will be transfus
[2021-11-25 15:14] LABS: SARS-CoV-2 RNA PCR Negative
[2021-11-25 15:19] LABS: Hematocrit 14.7 % (42.0-52.0); Hemoglobin 4.7 g/dL (14.0-18.0)
[2021-11-25] MEDS: ONDANSETRON INJ 4 MG/2 ML VIAL IV PUSH (15:39)
--- NOTE | 2021-11-25 17:07 | PC.NURSE ---
Room assignment received, however room not clean. SBAR faxed.
--- NOTE | 2021-11-25 17:32 | WPDGICN ---
Assessment and Plan Assessment and plan (1) Melena: Code(s): K92.1 - Melena Status: Acute Assessment and Plan: he has had black stools the last few days but actually has had black stools for several weeks because he has been on an iron supplement. He does not know if he sees the difference in stool consistency or color. I discussed gastrointestinal bleeding with the patient and his family. I Explained we will do endoscopy tomorrow morning. I discussed the procedure and its risks, such as bleeding or perforation but that these were rare. I explained that in most cases we can perform therapeutic measures such as cautery or injection to help control bleeding. I explained the some cases surgery is necessary. I told that although he wants to eat now, that would rather keep him only on liquids until we know the source of his bleeding. He will be treated with pantoprazole intravenously (2) Hematemesis: Code(s): K92.0 - Hematemesis Status: Acute Assessment and Plan: his family member has a picture of what came up the night before last. Looks like coffee-ground material with some reddish changes (3) Anemia due to acute blood loss: Code(s): D62 - Acute posthemorrhagic anemia Status: Acute Assessment and Plan: Although he is chronically anemic with a hemoglobin of 8 to 9. His hemoglobin now is down to 4.7. He is receiving his 2nd unit of blood at the present time. will follow serial H&H. (4) Chronic kidney disease: Code(s): N18.9 - Chronic kidney disease, unspecified Status: Acute Assessment and Plan: He received his treatment to [place] for peritoneal dialysis GI Consult Note Consult date/time: 11/25/21 17:32 HPI: John Vaughn is a 76 year old male who came to emergency room today because he was feeling rather weak. Simply walking around made him feel too exhausted. He has had indigestion for the past several days and felt like he was going to throw up. Only once that he vomited and brought up dark coffee-ground type material the day before yesterday. His stools have been black and tarry. The however adds that they have been that way for a couple months because he had been placed on binders and these apparently contain iron she states that he takes binders because the kidney disease does not permit him to digest food like the rest of us. he does not take any anti-inflammatory medications. He denies abdominal pain but had a sour stomach last few days. He has had colonoscopy since a Justin. He has never had an EGD that he can recall. He denies dysphagia or heartburn. His weight has been stable. He has been on peritoneal dialysis. Review of Systems Review of Systems: All systems reviewed & are unremarkable except as noted in HPI and below PMFSH Past Medical History Medical History ESRD (end stage renal disease) Hyperlipidemia Hypertension Peritoneal dialysis catheter in place Social History Social History Smoking status: Never smoker Meds Home Medications and Allergies Home Medications Medication Instructions Recorded Confirmed Type doxycycline hyclate 100 mg PO BID #14 cap 07/28/20 Rx acetaminophen [Tylenol Arthritis 650 mg PO Q12H PRN #10 tablet 01/05/21 Rx Pain] Allergies Allergy/AdvReac Type Severity Reaction Status Date / Time Penicillins Allergy Mild Unknown Verified 11/25/21 14:41 Vital Signs Vital Signs - 24 hr 11/25/21 12:40 11/25/21 12:59 11/25/21 13:01 Temperature 36.6 C Pulse Rate 61 60 60 Respiratory Rate 17 16 10 L Blood Pressure 129/64 140/70 151/72 H Pulse Oximetry 100 11/25/21 13:12 11/25/21 13:15 11/25/21 13:35 Temperature Pulse Rate 59 L 61 64 Respiratory Rate 10 L 13 13 Blood Pressure 156/72 H Pulse Oximetry 11/25/21 13:47 11/25/21 14:
--- NOTE | 2021-11-25 18:00 | PC.NURSE ---
Report to [facility] Vidal. Preparing to initiate 2nd RBC, wait till 15 min vitals are taken, then transport pt to floor.
--- NOTE | 2021-11-25 18:00 | PM.IMHP ---
H&P: HPI History of Present Illness Date/Time: 11/25/21 18:00 Chief Complaint: Weakness. Narrative: This is a pleasant 76-year-old male with history of kidney cancer status post nephrectomy, hypertension, end-stage renal disease on peritoneal dialysis, anemia, and other comorbidities who presented to the emergency department from home for evaluation of weakness. He has not been feeling well for the last several days and reports nearly constant nausea and intermittent bloating. On Sunday he reports passing a large, dark stool though he states that is not necessarily unusual for him since he started taking Veltassa and Auryxia. Later on in the day his nausea became much more intense and he had several episodes of coffee-ground emesis. Since that time he has gotten progressively more weak and he has noticed lightheadedness with position changes as well as dyspnea on exertion. Hemoglobin and hematocrit today were 4.7 and 14.7% respectively and he is being admitted in this setting for blood transfusion and GI evaluation. At the time my evaluation he does not have any significant complaints and he is resting comfortably. He takes a baby aspirin and 100 mg of diclofenac daily and other than that he will take Tylenol if needed for aches and pains. He drinks 1 cup of coffee a day and denies significant alcohol use. No history of peptic ulcers, GERD, esophagitis, gastritis, etc.. Review of Systems Review of Systems: Twelve systems were reviewed. No syncope or near syncope. No fever or chills. Patient reports significant sweats just before he had coffee-ground emesis on Sunday. No exertional chest pain. No orthopnea or PND. He does still urinate a bit. Except as documented, all other systems were reviewed and are negative. [facility] Past Medical History Medical History (Updated 11/25/21 @ 22:48 by Yudith Colon PA-C) Anemia of chronic disease Cancer of kidney End-stage renal disease on peritoneal dialysis Hyperlipidemia Hypertension Surgical History Surgical History (Updated 11/25/21 @ 22:45 by Yudith Colon PA-C) History of nephrectomy History of open reduction and internal fixation (ORIF) procedure Repair of right hand and right ankle fractures. Peritoneal dialysis catheter in place Family History Family History Father Cardiovascular disease Mother Asthma Social History Social History (Updated 11/25/21 @ 22:46 by Yudith Colon PA-C) Social History: Surrogate decision maker: Carine Vaughn, spouse. Code status: Full code. Smoking status: Never smoker Alcohol intake: never Substance use: never Living arrangements: with family Occupation/Education: retired Spiritual care concerns: Yes Meds Home Medications and Allergies Home Medications Medication Instructions Recorded Confirmed Type acetaminophen [Tylenol Arthritis 650 mg PO Q12H PRN #10 tablet 01/05/21 11/25/21 Rx Pain] allopurinol 100 mg PO DAILY 11/25/21 11/25/21 History amlodipine 10 mg PO DAILY 11/25/21 11/25/21 History aspirin 81 mg PO DAILY 11/25/21 11/25/21 History diclofenac sodium 100 mg PO DAILY 11/25/21 11/25/21 History docusate sodium 200 mg PO DAILY 11/25/21 11/25/21 History escitalopram oxalate 10 mg PO DAILY 11/25/21 11/25/21 History ferric citrate [Auryxia] 210 mg PO DAILY 11/25/21 11/25/21 History furosemide 80 mg PO BID 11/25/21 11/25/21 History lisinopril 40 mg PO DAILY 11/25/21 11/25/21 History metoprolol succinate 100 mg PO DAILY 11/25/21 11/25/21 History patiromer calcium sorbitex 8.4 g PO DAILY 11/25/21 11/25/21 History [Veltassa] temazepam 30 mg PO HS PRN 11/25/21 11/25/21 History Allergies Allergy/AdvReac Type Severity Reaction Status Date / Time Penicillins Allergy Mild Unknown Verified 11/25/21 14:41 Vital Signs Vital Signs - 24 hr 11/25/21 12:40 11/25/21 12:59 11/25/21 13:01 Temperature 97.8 F Pulse Rate 61 60 60 Respiratory
--- NOTE | 2021-11-25 18:35 | ADMGEN ---
This patient, John Vaughn, was admitted to IMU Room 201-01. Patient/family oriented to hospital policies and general routines including ID bracelet, bed and alarms, visiting hours, pain management, procedures, bathroom and other care routines, personal items, smoking policy, room service/diet, and visiting hours. Information on how to activate the Rapid Response Team has been discussed. Patient/Family are encouraged to report perceived risks to care and to ask questions if they do not understand what they are told or what they should do.
[2021-11-25] MEDS: TUBING, BLOOD SET 1 EACH XX ×2 (19:40→19:41)
[2021-11-25] MEDS: TUBING, BLOOD PLUM PUMP TUBING 1 EACH XX (19:41)
[2021-11-25] MEDS: SODIUM CHLORIDE 0.9% IV 50 ML 30 ML (19:41)
--- NOTE | 2021-11-25 21:12 | PC.NURSE ---
This RN and Charge Nurse, Alyssa Reich, spoke with and patient about Dr. Torres's plan for peritoneal dialysis in am instead of tonight. and patient comfortable to proceed with peritoneal dialysis in am. wanting to stay overnight with patient. Visiting hours reiterated. is allowed to come back at 0700 before morning endoscopy procedure. voiced understanding.
[2021-11-25 22:08] LABS: Hematocrit 24.7 % (42.0-52.0)
[2021-11-25] MEDS: TEMAZEPAM (*CRX) 15 MG CAPSULE 30 MG PO (23:11)
[2021-11-25] MEDS: FUROSEMIDE 80 MG TABLET PO (23:11)
[2021-11-26] VITALS (21 sets, daily range): BP systolic 113–180; BP diastolic 53–79; PULSE 57–98; RESP 16–20; TEMP 36.2–36.8; O2SAT 96–99
[2021-11-26 04:53] LABS: Basophils Percent Auto 0.3 % (0.2-1.2); Eosinophils Absolute Auto 0.5 K/mm3 (0-0.3); Eosinophils Percent Auto 6.5 % (0-4.4); Hematocrit 22.5 % (42.0-52.0); Hemoglobin 7.4 g/dL (14.0-18.0); Immature Granulocyte Absolute 0.05 K/mm3 (0.00-0.031); Immature Granulocyte Percent A 0.6 % (0-0.5); Lymphocytes Absolute Auto 2.09 K/mm3 (0.9-3.2); Lymphocytes Percent Auto 26.5 % (18.3-44.2); Mean Corpuscular HGB Conc 32.9 g/dl (32-36); Mean Corpuscular Hemoglobin 31.2 pg (26-34); Mean Corpuscular Volume 94.9 fl (80-100); Mean Platelet Volume 10.5 fl (7.4-10.4); Monocytes Absolute Auto 0.8 K/mm3 (0.1-0.6); Monocytes Percent Auto 9.6 % (2.6-8.5); Neutrophils Absolute Auto 4.5 K/mm3 (1.3-6.7); Neutrophils Percent Auto 56.5 % (45.5-73.1); Platelet Count Result 166 k/mm3 (150-375); Red Blood Count 2.37 M/mm3 (4.6-6.20); Red Cell Distribution Width 16.6 % (11.5-14.5); White Blood Count 7.9 K/mm3 (4.5-10.0)
[2021-11-26 05:13] LABS: Alanine Aminotransferase 12 U/L (6-50); Albumin Level 2.6 g/dL (3.5-5.1); Alkaline Phosphatase 53 U/L (38-126); Anion Gap 11 mmol/L (8-16); Aspartate Amino Transferase 15 U/L (17-59); Bilirubin,Total 0.1 mg/dL (0.2-1.3); Blood Urea Nitrogen 88 mg/dL (9-20); Calcium 8.6 mg/dL (8.4-10.2); Carbon Dioxide 24 mmol/L (22-30); Chloride 102 mmol/L (98-107); Glucose 82 mg/dL (65-110); Magnesium 1.8 mg/dL (1.6-2.3); Phosphorus 7.6 mg/dL (2.5-4.5); Potassium 3.9 mmol/L (3.4-5.0); Sodium 137 mmol/L (137-145)
[2021-11-26 05:16] LABS: Estimated CRCL calculation 3 ml/min; Estimated Glomerular Filt Rate 3
--- NOTE | 2021-11-26 07:57 | WPDANESEPPF ---
Anes - Initial Pre Proc Eval Procedure: Operation Date: 11/26/21 08:30 Proposed Procedures p Esophagogastroduodenoscopy - Bridger Hernández MD Date/Time: 11/26/21 07:57 Surgeon: Austyn Quesada MD Pre Op Diagnosis: UGI bleeding, Anemia, ESRD Patient Data Age: 76 Gender: M Height: 1.65 m Weight: 72.3 kg Last Vital Signs Temp 36.2 C L 11/26/21 04:00 Pulse 61 11/26/21 06:00 Resp 16 11/26/21 04:00 BP 135/69 11/26/21 04:00 Pulse Ox 99 11/26/21 04:00 Allergies Allergy/AdvReac Type Severity Reaction Status Date / Time Penicillins Allergy Mild Unknown Verified 11/25/21 14:41 Home Medications Medication Instructions Recorded Confirmed Type acetaminophen [Tylenol Arthritis 650 mg PO Q12H PRN #10 tablet 01/05/21 11/25/21 Rx Pain] allopurinol 100 mg PO DAILY 11/25/21 11/25/21 History amlodipine 10 mg PO DAILY 11/25/21 11/25/21 History aspirin 81 mg PO DAILY 11/25/21 11/25/21 History diclofenac sodium 100 mg PO DAILY 11/25/21 11/25/21 History docusate sodium 100 mg PO BID 11/25/21 11/26/21 History escitalopram oxalate 10 mg PO DAILY 11/25/21 11/25/21 History ferric citrate [Auryxia] 210 mg PO TIDWM 11/25/21 11/26/21 History furosemide 80 mg PO BID 11/25/21 11/25/21 History metoprolol succinate 100 mg PO DAILY 11/25/21 11/25/21 History patiromer calcium sorbitex 8.4 g PO DAILY 11/25/21 11/25/21 History [Veltassa] temazepam 30 mg PO HS PRN 11/25/21 11/25/21 History Laboratory Tests 11/25/21 11/25/21 11/25/21 12:31 12:31 13:25 WBC 8.7 K/mm3 K/mm3 (4.5-10.0) RBC 1.46 M/mm3 L M/mm3 (4.6-6.20) Hgb 4.8 g/dL L* D g/dL (14.0-18.0) Hct 15.2 % L* % (42.0-52.0) MCV 104.1 fl H fl (80-100) MCH 32.9 pg pg (26-34) MCHC 31.6 g/dl L g/dl (32-36) RDW 13.8 % % (11.5-14.5) Plt Count 200 k/mm3 k/mm3 (150-375) MPV 10.5 fl H fl (7.4-10.4) Immature Gran % (Auto) 0.7 % H % (0-0.5) Neut % (Auto) 65.4 % % (45.5-73.1) Lymph % (Auto) 21.4 % % (18.3-44.2) Harmon % (Auto) 6.6 % % (2.6-8.5) Eos % (Auto) 5.6 % H % (0-4.4) Baso % (Auto) 0.3 % % (0.2-1.2) Lymph # (Auto) 1.86 K/mm3 K/mm3 (0.9-3.2) Harmon # (Auto) 0.6 K/mm3 K/mm3 (0.1-0.6) Eos # (Auto) 0.5 K/mm3 H K/mm3 (0-0.3) Baso # (Auto) 0.0 K/mm3 K/mm3 (0.0-0.1) Abs Immat Gran (auto) 0.06 K/mm3 H K/mm3 (0.00-0.031) Absolute Neuts (auto) 5.7 K/mm3 K/mm3 (1.3-6.7) Absolute Nucleated RBC 0.0 K/mm3 K/mm3 (0.0-0.012) Nucleated RBC % 0.0 % % (0.0-0.2) PT INR APTT Sodium 133 mmol/L L mmol/L (137-145) Potassium 3.9 mmol/L mmol/L (3.4-5.0) Chloride 98 mmol/L mmol/L (98-107) Carbon Dioxide 26 mmol/L mmol/L (22-30) Anion Gap 9 mmol/L mmol/L (8-16) BUN 83 mg/dL H mg/dL (9-20) Creatinine 13.80 mg/dL H mg/dL (0.7-1.3) Estim Creat Clear Calc 4 ml/min ml/min Estimated GFR 4 L (59 - ) Glucose 127 mg/dL H mg/dL (65-110) Calcium 9.0 mg/dL mg/dL (8.4-10.2) Phosphorus Magnesium Total Bilirubin 0.1 mg/dL L mg/dL (0.2-1.3) AST 16 U/L L U/L (17-59) ALT 13 U/L U/L (6-50) Alkaline Phosphatase 53 U/L U/L (38-126) Total Protein 5.0 g/dL L g/dL (6.3-8.2) Albumin 2.9 g/dL L g/dL (3.5-5.1) Urine Color Yellow (Yellow) Urine Appearance Clear (Clear) Urine pH 7.0 (5.0-9.0) Ur Specific [place] 1.015 (1.001-1.035) Urine Protein 2+ mg/dL H mg/dL (Negative) Urine Glucose (UA) Trace mg/dL H mg/dL (Negative) Urine Ketones Negative mg/dL mg/dL (Negative) Ur Blood (Man) 1+ H
[2021-11-26] MEDS: SODIUM CHLORIDE 0.9% IV 500 ML 10 ML IV CONT (08:00)
--- NOTE | 2021-11-26 08:18 | PC.NURSE ---
Patient transferred to GI lab at 0737 for EGD.
--- NOTE | 2021-11-26 09:23 | PC.NURSE ---
Report received by GI lab team at 0918.
[2021-11-26] MEDS: ESCITALOPRAM OXALATE 10 MG TABLET PO (10:23)
[2021-11-26] MEDS: DOCUSATE SODIUM 100 MG CAPSULE 200 MG PO (10:23)
[2021-11-26] MEDS: amLODIPine BESYLATE 5 MG TABLET 10 MG PO (10:23)
[2021-11-26] MEDS: FUROSEMIDE 80 MG TABLET PO ×2 (10:24→17:40)
[2021-11-26] MEDS: METOPROLOL SUCCINATE EXT REL 100 MG TABCR PO (10:25)
[2021-11-26] MEDS: PANTOPRAZOLE SODIUM IV 40 MG VIAL IV PUSH ×2 (10:25→17:40)
[2021-11-26] MEDS: lisinopriL 20 MG TABLET PO (10:36)
--- NOTE | 2021-11-26 10:50 | PC.NURSE ---
Patient back to room at 0950 from EGD/ GI lab.
[2021-11-26 11:15] LABS: Hematocrit 24.3 % (42.0-52.0); Hemoglobin 7.7 g/dL (14.0-18.0)
--- NOTE | 2021-11-26 11:33 | PM.CNNEP ---
Assessment and Plan Additional Plan 1. Ten he has end-stage renal disease. He is on peritoneal dialysis. His labs are good according to what he says. He has significant residual renal function. 2. The patient has an ulcer. This has led to severe anemia. He received blood transfusions last night. He is now getting IV pantoprazole. 3. The patient has arthritis. Takes diclofenac for this. This is going to have to stop. It is not good for his residual renal function anyway. 4. He has a history of renal cell cancer. He had nephrectomy because of this. 5. The patient has hypertension. His blood pressure is under good control. He is currently on amlodipine and metoprolol. 6. He has anemia of chronic kidney disease. I do not know if he takes Epogen at home but will started here since his hemoglobin was so low. He can get back on his usual dose of EPO if he is on any wants his hemoglobin gets above 10. 7. As renal osteodystrophy. He takes binders. 8. It sounds like he has recurrent hyperkalemia as well because he is on Veltassa every day. History of Present Illness Reason for Consult Consult date: 11/26/21 Chief Complaint Chief complaint: UGI bleeding, Anemia, ESRD History of Present Illness Narrative: John is a very pleasant 76-year-old gentleman who has multiple medical problems including end-stage renal disease on peritoneal dialysis, anemia of chronic kidney disease, cancer of the kidneys, hyperlipidemia, and hypertension. The patient gets his peritoneal dialysis through [facility] nephrology. The patient has been doing well on peritoneal dialysis. He and his do the procedure together. He had been feeling fine until the last week or so when he gradually started getting more and more weak. Yesterday he was so weak that he could hardly stand. Then he threw up and there was coffee-ground emesis. So they called 911 and he came to the emergency room. He was evaluated there and had some blood work done. His hemoglobin is only 4.8. He was transfused and admitted. This morning he had an EGD which showed an ulcer. The patient says he has not really had that much abdominal discomfort. May be some indigestion every once in a while. He did have the nausea with coffee-ground emesis yesterday but it had not happened before. He has not had any diarrhea. He does have black stools but he is on aurixia which is an iron containing phosphorus binder and normally turns the stool black. He has never had an ulcer before. He does take diclofenac. The patient has been on peritoneal dialysis for a few years. It has worked well. He makes a lot of urine and so has significant residual function. He only has about 9L of volume for his peritoneal dialysis. He has hypertension. He is on medications for this namely metoprolol and amlodipine. Review of Systems Constitutional: Constitutional: Reports no additional constitutional complaints Eyes: Eyes: Reports no additional eye complaints ENT: Reports system reviewed and no additional complaints, except as documented Cardiovascular: Cardiovascular: Reports no additional cardiovascular complaints Respiratory: Respiratory: Reports no additional respiratory complaints Gastrointestinal: Gastrointestinal: Reports no additional gastrointestinal complaints Genitourinary: Genitourinary: Reports no additional male genitourinary complaints Musculoskeletal: Musculoskeletal: Reports no additional musculoskeletal complaints Integumentary/Breasts: Skin/Breast: Reports system reviewed and no additional complaints, except as docu Neurologic: Reports system reviewed and no additional complaints, except as documented Psychiatric: Psychiatric: Reports no additional psychiatric complaints Endocrine: Endocrine: Reports no additional endocrine complaints [facility] Past Medical History Medical History Anemia of chronic disease Cancer of kid
--- NOTE | 2021-11-26 11:45 | PM.EVENT ---
Event Note Event Note Event Note: Patient is on peritoneal dialysis and tolerating it well. He will start his next round pretty soon. He was seen at 11:15 a.m.
[2021-11-26 12:07] LABS: Iron 94 ug/dL (49-181)
[2021-11-26 12:17] LABS: Percent Iron Saturation 49 % (20-50)
--- NOTE | 2021-11-26 13:16 | PHAR ---
PT'S HOME MED AURYXIA 210 MG TABLETS VERIFIED BY PHARMACY
[2021-11-26] MEDS: EPOETIN ALFA-EPBX 10,000 UNITS/ML VIAL 10000 UNITS SUB-Q (13:45)
--- NOTE | 2021-11-26 14:57 | PHAR ---
HOME MEDS: PATIROMER (VELTASSA) 8.4 MG PACKET; DISSOLVE CONTENTS OF 1 PACKET IN LIQUID AND DRINK DAILY. VERIFIED BY PHARMACY.
[2021-11-26] MEDS: TEMAZEPAM (*CRX) 15 MG CAPSULE 30 MG PO (20:47)
[2021-11-27] VITALS (9 sets, daily range): BP systolic 157–158; BP diastolic 63–80; PULSE 56–67; RESP 20; TEMP 36.2–36.5; O2SAT 98–100
[2021-11-27 04:49] LABS: Hematocrit 24.6 % (42.0-52.0); Mean Corpuscular HGB Conc 32.5 g/dl (32-36); Mean Corpuscular Hemoglobin 31.1 pg (26-34); Mean Corpuscular Volume 95.7 fl (80-100); Mean Platelet Volume 10.5 fl (7.4-10.4); Platelet Count Result 180 k/mm3 (150-375); Red Blood Count 2.57 M/mm3 (4.6-6.20); Red Cell Distribution Width 16.1 % (11.5-14.5); White Blood Count 7.5 K/mm3 (4.5-10.0)
[2021-11-27 05:07] LABS: Albumin Level 2.8 g/dL (3.5-5.1); Anion Gap 11 mmol/L (8-16); Blood Urea Nitrogen 74 mg/dL (9-20); Calcium 9.2 mg/dL (8.4-10.2); Carbon Dioxide 25 mmol/L (22-30); Chloride 100 mmol/L (98-107); Estimated CRCL calculation 4 ml/min; Estimated Glomerular Filt Rate 4; Glucose 116 mg/dL (65-110); Phosphorus 6.2 mg/dL (2.5-4.5); Potassium 3.5 mmol/L (3.4-5.0); Sodium 136 mmol/L (137-145)
[2021-11-27] MEDS: METOPROLOL SUCCINATE EXT REL 100 MG TABCR PO (08:15)
[2021-11-27] MEDS: allopurinoL 100 MG TABLET PO (08:15)
[2021-11-27] MEDS: FUROSEMIDE 80 MG TABLET PO (08:16)
[2021-11-27] MEDS: lisinopriL 20 MG TABLET PO (08:16)
[2021-11-27] MEDS: amLODIPine BESYLATE 5 MG TABLET 10 MG PO (08:16)
[2021-11-27] MEDS: ESCITALOPRAM OXALATE 10 MG TABLET PO (08:16)
[2021-11-27] MEDS: DOCUSATE SODIUM 100 MG CAPSULE 200 MG PO (08:16)
[2021-11-27] MEDS: PANTOPRAZOLE SODIUM IV 40 MG VIAL IV PUSH (08:17)
--- NOTE | 2021-11-27 10:14 | WPDGIPROGNO ---
Progress Note: A&P Assessment and Plan (1) Melena: Code(s): K92.1 - Melena Status: Acute Assessment and Plan: he has had black stools the last few days but actually has had black stools for several weeks because he has been on an iron supplement. He does not know if he sees the difference in stool consistency or color. I discussed gastrointestinal bleeding with the patient and his family. I Explained we will do endoscopy tomorrow morning. I discussed the procedure and its risks, such as bleeding or perforation but that these were rare. I explained that in most cases we can perform therapeutic measures such as cautery or injection to help control bleeding. I explained the some cases surgery is necessary. I told that although he wants to eat now, that would rather keep him only on liquids until we know the source of his bleeding. He will be treated with pantoprazole intravenously 11/26 he has had no bloody stools. He is tolerating his liquid diet. Denies abdominal pain or nausea. Hemoglobin is up to 8. I told that he could go home on his usual diet. I spoke to his son his and the patient and told him he cannot take diclofenac until after he has repeat EGD in 4 weeks to confirm healing of his ulcer. (2) Hematemesis: Code(s): K92.0 - Hematemesis Status: Acute Assessment and Plan: his family member has a picture of what came up the night before last. Looks like coffee-ground material with some reddish changes 11/26 no further vomiting (3) Anemia due to acute blood loss: Code(s): D62 - Acute posthemorrhagic anemia Status: Acute Assessment and Plan: Although he is chronically anemic with a hemoglobin of 8 to 9. His hemoglobin now is down to 4.7. He is receiving his 2nd unit of blood at the present time. will follow serial H&H. 11/26 today hemoglobin is a (4) Chronic kidney disease: Code(s): N18.9 - Chronic kidney disease, unspecified Status: Acute Assessment and Plan: He received his treatment to [place] for peritoneal dialysis 11/26 he had 2 rounds of peritoneal dialysis yesterday. He will do 1 this evening at home as he does usually Subjective Date/time seen: 11/27/21 10:14 he feels good today. He is eager to eat. Denies vomiting or nausea. He has had no bloody stools. I spoke to him and came back when his family arrived and discussed with them the findings of the ulcer which we cauterized. I told H pylori was negative. I again emphasized the fact that he cannot take diclofenac for the next several weeks and if we allowed again it would have to be after eating. He had been taking it on an empty stomach in the morning. I will schedule for follow-up EGD in 4 weeks. From my perspective he can go home. He 35 minutes were spent with the patient and family discussing findings, recommendations, future studies. Exam Const: General: alert Orientation/consciousness: patient oriented x3 Resp: Auscultation: clear to auscultation bilaterally Cardio: Rhythm: regular rhythm GI: Inspection: other ( peritoneal dialysis catheter in right upper quadrant) Auscultation: normal bowel sounds Skin: General skin exam: ecchymosis and other ( hyperpigmented) Neuro: General: patient oriented x3 Objective Data Vital Signs Vital Signs: Vital Signs - 24 hr 11/26/21 10:25 11/26/21 11:40 11/26/21 12:00 Temperature 36.2 C L 36.8 C Pulse Rate 59 L 61 58 L Respiratory Rate 16 16 Blood Pressure 135/69 114/53 L Pulse Oximetry 96 11/26/21 14:00 11/26/21 16:00 11/26/21 18:00 Temperature 36.6 C Pulse Rate 61 60 62 Respiratory Rate 20 Blood Pressure 156/69 H Pulse Oximetry 98 11/26/21 19:17 11/26/21 20:00 11/26/21 21:55 Temperature 36.6 C 36.2 C L Pulse Rate 59 L 65 61 Respiratory Rate 20 16 Blood Pressure 156/69 H 151/67 H Pulse Oximetry 98 97 11/26/21 23:35 11/27/21 00:00 11/27/21 02:00 Temperature 36.6
--- NOTE | 2021-11-27 10:37 | PM.DS ---
DS: Admitting Diagnosis Discharge Date 11/27/21 Admitting Diagnosis GI Bleed, Blood loss anemia, Anemia of Chronic disease, ESRD on peritoneal dialysis, HTN DS: Discharge Diagnosis Discharge Diagnosis (1) GI bleed: Code(s): K92.2 - Gastrointestinal hemorrhage, unspecified Status: Acute Assessment and Plan: Suspected upper GI bleed with reported coffee-ground emesis and melena. He has been started on pantoprazole 40 mg b.i.d.. NPO after midnight for endoscopy tomorrow per Dr. Hernández. - 11/27/21, Date of discharge: No progress note was completed yesterday for my review. From looking at the chart, the pt. appears to have undergone an EGD by Dr. Hernández on 11/26/21, and it demonstrated NERD, Intraluminal Gastric blood and an unspecified gastric ulcer. He is clear for discharge today by Dr. Hernández with instructions to have a repeat EGD in four weeks and also stop Diclofenac. (2) Blood loss anemia: Code(s): D50.0 - Iron deficiency anemia secondary to blood loss (chronic) Status: Acute Assessment and Plan: Acute on chronic anemia related to blood loss from GI bleed. Transfuse 2 stable hemoglobin and monitor H&H q.6 hours. - 11/27/21, Date of discharge: Pt. was transfused a total of 2 units of PRBC's and he has a stable Hgb this AM of 8.0/24.6. No overt bleeding or obvious blood loss. The etiology of his anemia is likely acute on chronic with chronic from his ESRD and his acute secondary to his Gastric ulceration. (3) Anemia of chronic disease: Code(s): D63.8 - Anemia in other chronic diseases classified elsewhere Status: Acute Assessment and Plan: - 11/27/21: Date of discharge. Pt. was transfused yesterday, 11/26/21, two units of PRBC's. He was consulted on by Nephrology and in addition the pt. has his own [facility] over in [place]. He was given Epogen. It is the recommendations of Nephrology to continue with Epogen as ordered per his [facility]. (4) End-stage renal disease on peritoneal dialysis: Code(s): N18.6 - End stage renal disease; Z99.2 - Dependence on renal dialysis Status: Acute Assessment and Plan: Dr. Torres consulted for dialysis orders; input appreciated. - 11/27/21, Date of Discharge: Pt. had two PD exchanges yesterday into last night and he will have another tonight at home. Per Dr. Torres, pt. is to discontinue his Iron, Diclofenac and his Auryxia. He should follow up with his own [facility] DARNELL. (5) Hypertension: Code(s): I10 - Essential (primary) hypertension Status: Chronic Assessment and Plan: Blood pressures were reviewed and they are stable. Continue antihypertensives and monitor daily. - 11/27/21, date of discharge: Stable at 140s-150s/50s-60s DS: Summary Hospital Course Reason for hospitalization: Weakness Hospital Course: This 76-year-old male patient with significant past medical history of renal cancer status post nephrectomy, hypertension, end-stage renal disease on PD, anemia presented to the emergency room on 11/25/2021 with complaints of having persistent and constant nausea with bloating as well as generalized weakness. He also indicates that he passed a very large dark stool 2 days prior. And the same day had an episode of coffee-ground emesis. Upon arrival to the emergency room he was assessed in his H&H were 4.7 in 14.7 respectively in was admitted in the setting of an acute GI bleed. Patient was consulted on by both Gastroenterology and Nephrology. Patient underwent an EGD on 11/26/2021 that showed ulcerations as well as NERD. His recommendations were to hold diclofenac. In addition this patient was consulted on by Nephrology, who assisted with 2 exchanges of peritoneal dialysis yesterday. Patient will undergo another 1 tonight upon return home. He received 2 units of packed red blood cells yesterday and his hemoglobin has increased and is stable without any signs of overt bleeding or abdominal pain. Mona
--- NOTE | 2021-11-27 11:44 | PM.PNNEP ---
Progress Note: A&P Additional Plan 1. Ten he has end-stage renal disease. He is on peritoneal dialysis. He uses all yellow bags at home. He has significant residual renal function. 2. The patient has an ulcer. This has led to severe anemia. He received blood transfusions. He is getting PPIs Dr. Hernández just saw him. He feels he can be discharged. Dr. Blue wants him off the diclofenac as well as any iron preparations so they do not mask is bleeding. 3. 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 Takes diclofenac for this. This is better so he is just going to stop the diclofenac for good. 4. He has a history of renal cell cancer. He had nephrectomy because of this. 5. The patient has hypertension. His blood pressure is under good control. He is currently on amlodipine and metoprolol. 6. He has anemia of chronic kidney disease. I do not know if he takes Epogen at home but will started here since his hemoglobin was so low. He can get back on his usual dose of EPO if he is on any wants his hemoglobin gets above 10. 7. As renal osteodystrophy. He takes binders. He is going to stop the Aurixia. He is tried several binders and has had side effects to all of them. He is going to call his PD nurse tomorrow morning they will figure out which binder to put him on. 8. It sounds like he has recurrent hyperkalemia as well because he is on Veltassa every day. Subjective Date/time seen: 11/27/21 11:44 Interval history: Ten he is feeling better today. No more bloody stools. He is eager for discharge He had peritoneal dialysis last night and did well. About 500cc was removed. He was seen at 10:00 a.m. we discussed the case among the patient, his , son, nephew, and I talked with Dr. Hernández as well as with GAGE Tian. Review of Systems Cardiovascular: Cardiovascular: Reports no additional cardiovascular complaints Respiratory: Respiratory: Reports no additional respiratory complaints Gastrointestinal: Gastrointestinal: Reports no additional gastrointestinal complaints Genitourinary: Genitourinary: Reports no additional male genitourinary complaints Exam Narrative: WDWN in NAD skin no rash head ncat lungs clear cor reg no rub abd BS+ nontender and soft ext no edema. Objective Data Vital Signs Vital Signs: Vital Signs - 24 hr 11/26/21 12:00 11/26/21 14:00 11/26/21 16:00 Temperature 36.8 C 36.6 C Pulse Rate 58 L 61 60 Respiratory Rate 16 20 Blood Pressure 114/53 L 156/69 H Pulse Oximetry 96 98 11/26/21 18:00 11/26/21 19:17 11/26/21 20:00 Temperature 36.6 C 36.2 C L Pulse Rate 62 59 L 65 Respiratory Rate 20 16 Blood Pressure 156/69 H 151/67 H Pulse Oximetry 98 97 11/26/21 21:55 11/26/21 23:35 11/27/21 00:00 Temperature 36.6 C Pulse Rate 61 98 66 Respiratory Rate 18 Blood Pressure 149/66 H Pulse Oximetry 98 11/27/21 02:00 11/27/21 04:00 11/27/21 05:55 Temperature 36.5 C Pulse Rate 66 63 64 Respiratory Rate 20 Blood Pressure 158/63 H Pulse Oximetry 100 11/27/21 07:51 11/27/21 07:53 11/27/21 08:00 Temperature 36.2 C L Pulse Rate 63 62 Respiratory Rate 20 Blood Pressure 157/80 H Pulse Oximetry 98 99 11/27/21 08:15 11/27/21 10:00 Temperature Pulse Rate 62 56 L Respiratory Rate Blood Pressure Pulse Oximetry Intake/Output Intake/Output: Intake & Output 11/24/21 11/25/21 11/26/21 11/27/21 23:59 23:59 23:59 23:59 Intake Total 700 770 240 Output Total 8308 450 Balance 602 -6606 -901 Meds/Results Medications: Active Medications Generic Name Dose Route Start Last Admin Trade Name Freq PRN Reason Stop Dose Admin Acetaminophen 650 mg 11/25/21 22:51 Acetaminophen 325 Mg Tablet PO Q12H PRN pain Allopurinol 100 mg 11/26/21 08:00 11/27/21 08:15 Allopurinol 100 Mg Tablet PO 100 mg DAILY@0800 DUANE Administration Amlodipine Besylate 10 mg 11/26/21 09:00 11/27/21 08:16 Amlodipi
== END 2021-11-27 12:05 | disposition home or self-care (01) | DRG 377 ==
LOC: ANHED 13:24 → ANHIMU 17:00
PROVIDERS: Emergency Medicine; Internal Medicine Gastroenterology; Internal Medicine Nephrology; Admitting Provider Internal Medicine; Emergency Provider General Practice; Visit Provider Nurse Practitioner Adult Health
PROC: 0DJ08ZZ Inspection of Upper Intestinal Tract, Via Natural or Artificial Opening Endoscopic (ICD-10-PCS; CPT 43235; principal; 2021-11-26 08:30)
DX: K92.1 Melena (principal); N18.6 End stage renal disease; I12.0 Hypertensive chronic kidney disease with stage 5 chronic kidney disease or end stage renal disease; D62 Acute posthemorrhagic anemia; Z20.822 Contact with and (suspected) exposure to COVID-19; D63.8 Anemia in other chronic diseases classified elsewhere; Z99.2 Dependence on renal dialysis; E78.5 Hyperlipidemia, unspecified; Z85.528 Personal history of other malignant neoplasm of kidney; Z79.899 Other long term (current) drug therapy; K92.0 Hematemesis; Z90.5 Acquired absence of kidney; N25.0 Renal osteodystrophy; K21.9 Gastro-esophageal reflux disease without esophagitis; K25.9 Gastric ulcer, unspecified as acute or chronic, without hemorrhage or perforation
CPT/HCPCS: 36415; 36430; 71046; 80053; 80069; 81001; 82728; 83540; 83550; 83735; 84100; 85014; 85018; 85025; 85027; 85610; 85730; 86850; 86900; 86901; 86920; 87040; 87081; 88305; 90945; 93005; 96374; 99285; A9270; C9113; C9803; J2405; J7040; J7050; P9016; Q5105; U0003; U0005

== ENCOUNTER 2021-12-01 17:03 | Inpatient (IN) | payer MEDICARE, SELFPAY ==
--- NOTE | ~2021-12-01 | CT_ITS ---
EXAMINATION: CT abdomen pelvis wo con DATE: 12/01/2021 19:32 INDICATION: Low back pain after fall TECHNIQUE: Computed tomography (CT) of the abdomen and pelvis was performed without intravenous contr ast. The dose-length product was 445.17 mGy-cm. Automated exposure control and iterative reconstructi on technique were employed. COMPARISON: None. FINDINGS: There is dependent atelectasis in the lung bases. There is bilateral asymmetric gynecomasti a. Heart size normal. There is extensive atherosclerosis without aneurysm. No lymphadenopathy. There is a percutaneous drainage catheter overlying the pelvis, possibly peritoneal dialysis catheter. Clin ically correlate. Nonobstructive bowel gas pattern. Colonic diverticulosis without evidence for diver ticulitis. There is lower thoracic and lumbar spondylosis. No acute osseous abnormality. There are probable stones in the gallbladder and common duct. No significant biliary dilatation. The spleen, pancreas, adrenal glands are unremarkable. There is severe right renal atrophy with right amarjit al cysts. The left kidney is likely severely atrophic or absent. IMPRESSION: 1. Probable stones in the gallbladder and possibly the common bile duct. No biliary dilatation. Canno t exclude cholecystitis in the appropriate clinical setting. 2: Severe right renal atrophy and probable severe left renal atrophy or congenital/surgical absence. Correlate clinically. 3: Bilateral asymmetric gynecomastia. Reviewed, dictated and finalized at location A. IMPRESSION: 1. Probable stones in the gallbladder and possibly the common bile duct. No tigist iary dilatation. Cannot exclude cholecystitis in the appropriate clinical setti ng. 2: Severe right renal atrophy and probable severe left renal atrophy or congeni justina/surgical absence. Correlate clinically. 3: Bilateral asymmetric gynecomastia.
--- NOTE | ~2021-12-01 | XR_ITS ---
XR chest 2V 12/01/2021 18:15 Indication: Cough and dyspnea Procedure: 2 view chest Comparison: Comparison to multiple prior studies sequentially, with oldest reviewed study dated 11/2010. Findings: Heart size normal. Right lung clear. Left lower lobe airspace disease, consistent with pneu monia. No pleural effusion, edema or pneumothorax. There are calcified granulomata in both lungs. The re is atherosclerosis. Impression: 1: Left lower lobe airspace disease, compatible with pneumonia. Reviewed, dictated and finalized at location A. Impression: 1: Left lower lobe airspace disease, compatible with pneumonia.
[2021-12-01 17:06] VITALS: BP 141/69; PULSE 68; RESP 20; TEMP 36.9; O2SAT 98
--- NOTE | 2021-12-01 17:15 | PC.NURSE ---
Dr. Friedman, kidney doctor, would like update
--- NOTE | 2021-12-01 17:29 | ECG_ITS ---
Measurements Intervals Hernandez Rate: 66 P: 68 CO: 191 QRS: 43 QRSD: 82 T: 69 QT: 390 QTc: 409 Interpretive Statements SINUS RHYTHM NORMAL ECG Electronically Signed On 12-01-2021 20:42:01 CDT by Desean Diaz D.O.
--- NOTE | 2021-12-01 17:31 | ED.FALL ---
HPI - Fall General Chief Complaint: Fall Stated Complaint: fall Time Seen by Provider: 12/01/21 17:18 Source: patient Mode of arrival: ambulatory Limitations: no limitations History of Present Illness HPI Narrative: 76-year-old male with history of recent EGD and peritoneal dialysis presents today with complaints of right flank pain after a fall he sustained yesterday. Family is at the bedside. Patient states he was getting into the shower when he fell and hit his back on the edge of the shower. Bruising noted to the right flank. Patient denies any bloody urine. Patient does endorse weakness since discharged here a couple days ago. Prior to the fall yesterday patient's did state that she gave him 2 Benadryl. Patient has not slept since prior to discharge per patient and per family. Patient denies any other concerns other than the right flank pain at this time. Patient denies nausea, vomiting, abdominal pain, fevers, but does endorse a cough which he has had since his endoscopy but states it is getting better. Related Data Home Medications Medication Instructions Recorded Confirmed allopurinol 100 mg tablet 100 mg PO DAILY 11/25/21 11/25/21 amlodipine 10 mg tablet 10 mg PO DAILY 11/25/21 11/25/21 aspirin 81 mg tablet,delayed 81 mg PO DAILY 11/25/21 11/25/21 release docusate sodium 100 mg capsule 100 mg PO BID 11/25/21 11/26/21 escitalopram oxalate 10 mg tablet 10 mg PO DAILY 11/25/21 11/25/21 furosemide 80 mg tablet 80 mg PO BID 11/25/21 11/25/21 metoprolol succinate 100 mg 100 mg PO DAILY 11/25/21 11/25/21 tablet,extended release 24 hr patiromer calcium sorbitex 8.4 8.4 g PO DAILY 11/25/21 11/25/21 gram oral powder packet (Veltassa) temazepam 30 mg capsule 30 mg PO HS PRN Anxiety 11/25/21 11/25/21 Allergies Allergy/AdvReac Type Severity Reaction Status Date / Time Penicillins Allergy Mild Unknown Verified 12/01/21 17:17 Review of Systems Review of Systems: CONSTITUTIONAL: Denies fever, chills, or sweats. EYES: Denies visual changes, redness, or discharge. ENT: Denies rhinorrhea, congestion, sore throat, or otalgia. CARDIOVASCULAR: Denies chest pain, palpitations, or edema. RESPIRATORY: Denies cough or dyspnea. GASTROINTESTINAL: Denies abdominal pain, nausea, vomiting, or diarrhea. GENITOURINARY: Denies dysuria or hematuria. SKIN: Denies rash or itching. MUSCULOSKELETAL: Right flank pain with ecchymosis. Denies back pain, joint pain, or myalgia. NEUROLOGIC: Weakness and insomnia. dizziness prior to fall but currently denies. headache, numbness, dizziness. PSYCHIATRIC: Denies anxiety or depression. [facility] Past Medical History Medical History Anemia of chronic disease Cancer of kidney End-stage renal disease on peritoneal dialysis Hyperlipidemia Hypertension Surgical History Surgical History History of nephrectomy History of open reduction and internal fixation (ORIF) procedure Repair of right hand and right ankle fractures. Peritoneal dialysis catheter in place Family History Family History Father Cardiovascular disease Mother Asthma Social History Social History Social History: Surrogate decision maker: Carine Vaughn, spouse. Code status: Full code. Smoking status: Never smoker Alcohol intake: never Substance use: never Spiritual care concerns: Yes Exam Narrative: GENERAL: Well-appearing, well-nourished, and in no acute distress. HEAD: Normocephalic, atraumatic. EYES: PERRLA and EOMI. NECK: Supple. No adenopathy or masses. No carotid bruits or JVD CHEST: Clear to auscultation. No respiratory distress. No wheezes rales or rhonchi HEART: Regular rate and rhythm. No murmur heard. Normal peripheral pulses. ABDOMEN: Soft, nontender, nondistended, normal
[2021-12-01 17:50] LABS: Basophils Percent Auto 0.2 % (0.2-1.2); Eosinophils Absolute Auto 0.3 K/mm3 (0-0.3); Eosinophils Percent Auto 3.1 % (0-4.4); Hemoglobin 8.2 g/dL (14.0-18.0); Immature Granulocyte Absolute 0.06 K/mm3 (0.00-0.031); Immature Granulocyte Percent A 0.7 % (0-0.5); Lymphocytes Absolute Auto 1.48 K/mm3 (0.9-3.2); Lymphocytes Percent Auto 17.7 % (18.3-44.2); Mean Corpuscular HGB Conc 31.5 g/dl (32-36); Mean Corpuscular Hemoglobin 31.2 pg (26-34); Mean Corpuscular Volume 98.9 fl (80-100); Mean Platelet Volume 10.2 fl (7.4-10.4); Neutrophils Absolute Auto 5.5 K/mm3 (1.3-6.7); Neutrophils Percent Auto 66.3 % (45.5-73.1); Platelet Count Result 170 k/mm3 (150-375); Red Blood Count 2.63 M/mm3 (4.6-6.20); White Blood Count 8.3 K/mm3 (4.5-10.0)
[2021-12-01 17:58] LABS: Alanine Aminotransferase 9 U/L (6-50); Albumin Level 2.8 g/dL (3.5-5.1); Alkaline Phosphatase 75 U/L (38-126); Anion Gap 11 mmol/L (8-16); Aspartate Amino Transferase 14 U/L (17-59); Bilirubin,Total 0.2 mg/dL (0.2-1.3); Blood Urea Nitrogen 64 mg/dL (9-20); Calcium 8.5 mg/dL (8.4-10.2); Carbon Dioxide 27 mmol/L (22-30); Chloride 97 mmol/L (98-107); Glucose 132 mg/dL (65-110); Potassium 3.9 mmol/L (3.4-5.0); Sodium 135 mmol/L (137-145)
[2021-12-01 18:04] LABS: INR 1.2; Prothrombin Time 14.4 Seconds (11.1-14.7)
[2021-12-01 18:05] LABS: Partial Thromboplastin Time 30.7 SECONDS (22.3-36.8)
[2021-12-01 18:07] LABS: Estimated CRCL calculation 3 ml/min; Estimated Glomerular Filt Rate 3
[2021-12-01 18:55] LABS: Appearance Urine Clear (Clear); Bilirubin Urine Negative (Negative); Blood Urine 2+ (Negative); Color Urine Yellow (Yellow); Glucose Urine UA Trace mg/dL (Negative); Ketones Urine Negative (Negative); Leukocyte Esterase Ur Negative LEU/UL (Negative); Nitrate Urine Negative (Negative); Protein Urine 2+ mg/dL (Negative); Urobilinogen Urine 0.2 mg/dL (<2.0); pH Urine 7.5 (5.0-9.0)
[2021-12-01 18:57] VITALS: BP 156/69; PULSE 66; RESP 20; O2SAT 96
[2021-12-01 19:01] LABS: WBC Urine 0-3 /hpf
[2021-12-01 19:02] LABS: Add Urine Microscopic? YES
--- NOTE | 2021-12-01 19:06 | PC.NURSE ---
Report received from Tana LINCOLN and care of pt assumed at this time.
[2021-12-01 19:17] VITALS: BP 139/75; PULSE 70; RESP 18; O2SAT 98
--- NOTE | 2021-12-01 19:49 | PC.NURSE ---
This RN stock pulled heparin under this pt name incorrectly. Has been fixed in [employer]
[2021-12-01] MEDS: levoFLOXacin 500 MG/D5W 100 ML 500 MG/100 ML BAG 100 MG IVPB (19:52)
[2021-12-01 20:10] VITALS: BP 136/54; PULSE 71; RESP 18; O2SAT 95
--- NOTE | 2021-12-01 20:25 | PM.IMHP ---
H&P: HPI History of Present Illness Date/Time: 12/01/21 20:25 Chief Complaint: Generalized weakness Narrative: 76-year-old male past medical history of end-stage renal disease on peritoneal dialysis, recent hospital admission for upper GI bleed status post EGD showing gastric ulcer, he was discharged on PPI b.i.d. with a hemoglobin of 8 status post 2 units packed red blood cells, anemia continues today with a hemoglobin of 8.2, stable. In the ER, he was noted to be positive for COVID and started on Levaquin for possible pneumonia. Chest x-ray showed possible left lower lobe infiltrate. He does admit to having a cough since his EGD about 3-4 days ago. His states he fell and hit his side a couple days ago, imaging here was negative for any hematoma or trauma. Patient states he thinks he fell because he is weak and he thinks he is weak because he is tired. He states during his last admission he was unable to sleep. He denies any chest pain or shortness of breath. No nausea vomiting or diarrhea. He did have coffee-ground emesis with melena during his last admission, he has not had any of that since being home. He was discharged about 4 days ago and since then has felt weak and had difficulty sleeping. His states he is unable to care for himself at home secondary to this weakness and insisted on his admission. Due to his COVID positive status, he is unable to have peritoneal dialysis this evening because his is not permitted to visit him and bring his machinery. Of note, ER charting states that patient fell after having 2 Benadryl from his because he was unable to sleep. He denies any urinary changes. No other complaints. No fevers or chills. He does state he is fully vaccinated and boostered for COVID, unable to see these records to confirm at this time. Review of Systems Review of Systems: Twelve point review of systems was done and is negative except as noted in HPI PMFSH Past Medical History Medical History Anemia of chronic disease Cancer of kidney End-stage renal disease on peritoneal dialysis Hyperlipidemia Hypertension Surgical History Surgical History History of nephrectomy History of open reduction and internal fixation (ORIF) procedure Repair of right hand and right ankle fractures. Peritoneal dialysis catheter in place Family History Family History Father Cardiovascular disease Mother Asthma Social History Social History Social History: Surrogate decision maker: Carine Vaughn, spouse. Code status: Full code. Smoking status: Never smoker Alcohol intake: never Substance use: never Spiritual care concerns: No Meds Home Medications and Allergies Home Medications Medication Instructions Recorded Confirmed Type acetaminophen 650 mg 650 mg PO Q12H PRN pain #10 tabs 01/05/21 12/01/21 Rx tablet,extended release (Tylenol Arthritis Pain) allopurinol 100 mg tablet 100 mg PO DAILY 11/25/21 12/01/21 History amlodipine 10 mg tablet 10 mg PO DAILY 11/25/21 12/01/21 History aspirin 81 mg tablet,delayed 81 mg PO DAILY 11/25/21 12/01/21 History release docusate sodium 100 mg capsule 100 mg PO BID 11/25/21 12/01/21 History escitalopram oxalate 10 mg tablet 10 mg PO DAILY 11/25/21 12/01/21 History furosemide 80 mg tablet 80 mg PO BID 11/25/21 12/01/21 History metoprolol succinate 100 mg 100 mg PO DAILY 11/25/21 12/01/21 History tablet,extended release 24 hr patiromer calcium sorbitex 8.4 8.4 g PO DAILY 11/25/21 12/01/21 History gram oral powder packet (Veltassa) temazepam 30 mg capsule 30 mg PO HS PRN Anxiety 11/25/21 12/01/21 History lisinopril 20 mg tablet 10 mg PO DAILY 12/01/21 12/01/21 History sennosides 8.6 mg-docusate sodium 1 tab-cap PO HS 12/01/21
[2021-12-01 20:35] VITALS: BP 144/54; PULSE 68; RESP 17; TEMP 36.2; O2SAT 91
[2021-12-01 20:36] VITALS: BP 144/54; PULSE 68; RESP 17; TEMP 32.8; O2SAT 91
[2021-12-01 20:37] VITALS: BMI 24.9
[2021-12-01 20:39] LABS: SARS-CoV-2 RNA PCR Positive
--- NOTE | 2021-12-01 20:40 | ADMGEN ---
This patient, John Vaughn, was admitted to Medical Room 348-01. Patient/family oriented to hospital policies and general routines including ID bracelet, bed and alarms, visiting hours, pain management, procedures, bathroom and other care routines, personal items, smoking policy, room service/diet, and visiting hours. Information on how to activate the Rapid Response Team has been discussed. Patient/Family are encouraged to report perceived risks to care and to ask questions if they do not understand what they are told or what they should do.
[2021-12-01] MEDS: TEMAZEPAM (*CRX) 15 MG CAPSULE PO (22:39)
[2021-12-01 23:13] LABS: Procalcitonin 1.7 ng/mL
[2021-12-02] MEDS: TEMAZEPAM (*CRX) 15 MG CAPSULE PO (01:54)
[2021-12-02] MEDS: ACETAMINOPHEN 325 MG TABLET 650 MG PO (03:11)
[2021-12-02 04:41] VITALS: BP 152/53; PULSE 69; RESP 18; TEMP 35.6; O2SAT 95
[2021-12-02 07:06] LABS: Basophils Percent Auto 0.3 % (0.2-1.2); Eosinophils Absolute Auto 0.4 K/mm3 (0-0.3); Eosinophils Percent Auto 4.9 % (0-4.4); Hematocrit 25.8 % (42.0-52.0); Hemoglobin 8.1 g/dL (14.0-18.0); Immature Granulocyte Absolute 0.05 K/mm3 (0.00-0.031); Immature Granulocyte Percent A 0.7 % (0-0.5); Lymphocytes Absolute Auto 1.55 K/mm3 (0.9-3.2); Lymphocytes Percent Auto 20.2 % (18.3-44.2); Mean Corpuscular HGB Conc 31.4 g/dl (32-36); Mean Corpuscular Hemoglobin 30.9 pg (26-34); Mean Corpuscular Volume 98.5 fl (80-100); Mean Platelet Volume 10.5 fl (7.4-10.4); Monocytes Absolute Auto 1.2 K/mm3 (0.1-0.6); Monocytes Percent Auto 15.5 % (2.6-8.5); Neutrophils Absolute Auto 4.5 K/mm3 (1.3-6.7); Neutrophils Percent Auto 58.4 % (45.5-73.1); Platelet Count Result 170 k/mm3 (150-375); Red Blood Count 2.62 M/mm3 (4.6-6.20); Red Cell Distribution Width 15.9 % (11.5-14.5); White Blood Count 7.7 K/mm3 (4.5-10.0)
[2021-12-02 07:17] LABS: Phosphorus 9.2 mg/dL (2.5-4.5)
[2021-12-02 07:34] LABS: Alanine Aminotransferase 7 U/L (6-50); Albumin Level 2.9 g/dL (3.5-5.1); Alkaline Phosphatase 62 U/L (38-126); Anion Gap 14 mmol/L (8-16); Aspartate Amino Transferase 14 U/L (17-59); Bilirubin,Total 0.3 mg/dL (0.2-1.3); Blood Urea Nitrogen 69 mg/dL (9-20); Calcium 8.9 mg/dL (8.4-10.2); Carbon Dioxide 23 mmol/L (22-30); Chloride 98 mmol/L (98-107); Estimated CRCL calculation 3 ml/min; Estimated Glomerular Filt Rate 3; Glucose 81 mg/dL (65-110); Sodium 135 mmol/L (137-145)
[2021-12-02] MEDS: allopurinoL 100 MG TABLET PO (09:37)
[2021-12-02] MEDS: METOPROLOL SUCCINATE EXT REL 100 MG TABCR PO (09:38)
[2021-12-02] MEDS: ASPIRIN 81 MG ENTERIC TABLET PO (09:38)
[2021-12-02] MEDS: HEPARIN SODIUM 5,000 UNITS/ML VIAL 5000 UNITS SUB-Q (09:38)
[2021-12-02] MEDS: DOCUSATE SODIUM 100 MG CAPSULE PO (09:38)
[2021-12-02] MEDS: ESCITALOPRAM OXALATE 10 MG TABLET PO (09:38)
[2021-12-02] MEDS: amLODIPine BESYLATE 5 MG TABLET 10 MG PO (09:38)
--- NOTE | 2021-12-02 11:11 | P.DS_ITS ---
DS: Admitting Diagnosis Discharge Date 12/02/2021 <Leona Gonzalez PA-C - Last Filed: 12/02/21 15:46> Admitting Diagnosis Fall <Leona Gonzalez PA-C - Last Filed: 12/02/21 15:46> DS: Discharge Diagnosis Discharge Diagnosis (1) Weakness: Code(s): R53.1 - Weakness <DONOVAN ConnerC - Last Filed: 12/02/21 15:46> Status: Acute <DONOVAN ConnerC - Last Filed: 12/02/21 15:46> Assessment and Plan: Patient reports increased suspect secondary to recent hospitalization and physical deconditioning * Participated in PT/OT during admission * Recently acquired a walker which he has been instructed to use for ambulation * Referral provided for outpatient PT for evaluation and treatment of weakness and gait instability <Leona Gonzalez DONOVANC - Last Filed: 12/02/21 15:46> (2) Status post fall: Code(s): Z91.81 - History of falling <DONOVAN ConnerC - Last Filed: 12/02/21 15:46> Status: Acute <DONOVAN ConnerC - Last Filed: 12/02/21 15:46> Assessment and Plan: Patient fell and hit his right lower back. Endorsed low back pain * Fall precautions implemented * No evidence of back injury or hematoma. * Supportive care provided. Ice/heat as needed. Tylenol as needed * Continue outpatient PT as above <Leona Gonzalez GUERRERO - Last Filed: 12/02/21 15:46> (3) Pneumonia due to COVID-19 virus: Code(s): U07.1 - COVID-19; J12.82 - Pneumonia due to coronavirus disease 2018 <Leona Gonzalez DONOVANC - Last Filed: 12/02/21 15:46> Status: Acute <Leona Gonzalez DONOVANC - Last Filed: 12/02/21 15:46> Assessment and Plan: CXR on presentation showed left lower lobe airspace disease and patient found to be COVID positive. * No specific COVID-19 treatment required as patient was not hypoxic * Educated on precautions for COVID-19 * He reports completing vaccination and booster though records not available per EMR <SEAN Conner-C - Last Filed: 12/02/21 15:46> (4) End-stage renal disease on peritoneal dialysis: Code(s): N18.6 - End stage renal disease; Z99.2 - Dependence on renal dialysis <Leona Gonzalez PA-C - Last Filed: 12/02/21 15:46> Status: Acute <Leona Gonzalez PA-C - Last Filed: 12/02/21 15:46> Assessment and Plan: Maintained on peritoneal dialysis * Continue with dialysis schedule and follow up with bonsai culturist <SEAN Conner-C - Last Filed: 12/02/21 15:46> (5) Hypertension: Code(s): I10 - Essential (primary) hypertension <Leona Gonzalez PA-C - Last Filed: 12/02/21 15:46> Status: Chronic <Leona Gonzalez PA-C - Last Filed: 12/02/21 15:46> Assessment and Plan: Blood pressures reviewed and were stable. * Continue antihypertensive regimen <Leona Gonzalez PA-C - Last Filed: 12/02/21 15:46> (6) Anemia of chronic disease: Code(s): D63.8 - Anemia in other chronic diseases classified elsewhere <Leona Gonzalez PA-C - Last Filed: 12/02/21 15:46> Status: Acute <Leona Gonzalez PA-C - Last Filed: 12/02/21 15:46> Assessment and Plan: H&H stable. * Patient recently hospitalized for GI bleed requiring transfusion. No evidence of further blood loss. <Leona Gonzalez PA-C - Last Filed: 12/02/21 15:46> (7) Cholelithiasis: Code(s): K80.20 - Calculus of gallbladder without cholecystitis without obstruction <Leona Gonzalez PA-C - Last Filed: 12/02/21 15:46> Status: Acute <Leona Gonzalez PA-C -
--- NOTE | 2021-12-02 11:11 | PM.DS ---
DS: Admitting Diagnosis Discharge Date 12/02/2021 <Leona Gonzalez SEANNiranjanC - Last Filed: 12/02/21 15:46> Admitting Diagnosis Fall <Leona Gonzalez PA-C - Last Filed: 12/02/21 15:46> DS: Discharge Diagnosis Discharge Diagnosis (1) Weakness: Code(s): R53.1 - Weakness <Leona Gonzalez SEANNiranjanC - Last Filed: 12/02/21 15:46> Status: Acute <Leona Gonzalez SEANNiranjanC - Last Filed: 12/02/21 15:46> Assessment and Plan: Patient reports increased suspect secondary to recent hospitalization and physical deconditioning Participated in PT/OT during admission Recently acquired a walker which he has been instructed to use for ambulation Referral provided for outpatient PT for evaluation and treatment of weakness and gait instability <Leona TrevinoJessie Josodessa SEANNiranjanC - Last Filed: 12/02/21 15:46> (2) Status post fall: Code(s): Z91.81 - History of falling <Leona Gonzalez SEANNiranjanC - Last Filed: 12/02/21 15:46> Status: Acute <Leona Gonzalez SEAN-C - Last Filed: 12/02/21 15:46> Assessment and Plan: Patient fell and hit his right lower back. Endorsed low back pain Fall precautions implemented No evidence of back injury or hematoma. Supportive care provided. Ice/heat as needed. Tylenol as needed Continue outpatient PT as above <Leona TrevinoJessie Josodessa SEANNiranjanStefano - Last Filed: 12/02/21 15:46> (3) Pneumonia due to COVID-19 virus: Code(s): U07.1 - COVID-19; J12.82 - Pneumonia due to coronavirus disease 2018 <Leona Arguelloodessa SEANNiranjanC - Last Filed: 12/02/21 15:46> Status: Acute <Leona Arguelloodessa SEANNiranjanC - Last Filed: 12/02/21 15:46> Assessment and Plan: CXR on presentation showed left lower lobe airspace disease and patient found to be COVID positive. No specific COVID-19 treatment required as patient was not hypoxic Educated on precautions for COVID-19 He reports completing vaccination and booster though records not available per EMR <Leona Gonzalez, PA-C - Last Filed: 12/02/21 15:46> (4) End-stage renal disease on peritoneal dialysis: Code(s): N18.6 - End stage renal disease; Z99.2 - Dependence on renal dialysis <Leona Gonzalez, PA-C - Last Filed: 12/02/21 15:46> Status: Acute <Leona Gonzalez, PA-C - Last Filed: 12/02/21 15:46> Assessment and Plan: Maintained on peritoneal dialysis Continue with dialysis schedule and follow up with vocational rehabilitation consultant <Leona TrevinoJessie Carlos, PA-C - Last Filed: 12/02/21 15:46> (5) Hypertension: Code(s): I10 - Essential (primary) hypertension <Leona oGnzalez, PA-C - Last Filed: 12/02/21 15:46> Status: Chronic <Leona Gonzalez, PA-C - Last Filed: 12/02/21 15:46> Assessment and Plan: Blood pressures reviewed and were stable. Continue antihypertensive regimen <Leona Gonzalez, PA-C - Last Filed: 12/02/21 15:46> (6) Anemia of chronic disease: Code(s): D63.8 - Anemia in other chronic diseases classified elsewhere <Leona Gonzalez, PA-C - Last Filed: 12/02/21 15:46> Status: Acute <Leona Gonzalez, PA-C - Last Filed: 12/02/21 15:46> Assessment and Plan: H&H stable. Patient recently hospitalized for GI bleed requiring transfusion. No evidence of further blood loss. <Leona Gonzalez, PA-C - Last Filed: 12/02/21 15:46> (7) Cholelithiasis: Code(s): K80.20 - Calculus of gallbladder without cholecystitis without obstruction <Leona Gonzalez, PA-C - Last Filed: 12/02/21 15:46> Status: Acute <Leonamiguel ángel Arguelloac, PA-C - Last Filed: 12/02/21 15:46> Assessment and Plan: Incidentally noted on CT a/p. Patient asymptomatic. Total bili and LFTs within normal limits. Tolerating diet. No further intervention required <Leona Gonzalez PA-C - Last Filed: 12/02/21 15:46> DS: Summary Hospital Course Hospital Course: Date of admission: 12/01/21 Date of discharge: 12/02/21 T
--- NOTE | 2021-12-02 11:27 | PM.CNNEP ---
History of Present Illness Reason for Consult Consult date: 12/02/21 Reason for consult: end stage renal disease Chief Complaint Chief complaint: Pneumonia, weakness Review of Systems Review of Systems: As per HPI. [facility] Past Medical History Medical History Anemia of chronic disease Cancer of kidney End-stage renal disease on peritoneal dialysis Hyperlipidemia Hypertension Surgical History Surgical History History of nephrectomy History of open reduction and internal fixation (ORIF) procedure Repair of right hand and right ankle fractures. Peritoneal dialysis catheter in place Family History Family History Father Cardiovascular disease Mother Asthma Social History Social History Social History: Surrogate decision maker: Carine Roderick, spouse. Code status: Full code. Smoking status: Never smoker Alcohol intake: never Substance use: never Spiritual care concerns: No Meds Home Medications and Allergies Home Medications Medication Instructions Recorded Confirmed Type acetaminophen 650 mg 650 mg PO Q12H PRN pain #10 tabs 01/05/21 12/01/21 Rx tablet,extended release (Tylenol Arthritis Pain) allopurinol 100 mg tablet 100 mg PO DAILY 11/25/21 12/01/21 History amlodipine 10 mg tablet 10 mg PO DAILY 11/25/21 12/01/21 History aspirin 81 mg tablet,delayed 81 mg PO DAILY 11/25/21 12/01/21 History release docusate sodium 100 mg capsule 100 mg PO BID 11/25/21 12/01/21 History escitalopram oxalate 10 mg tablet 10 mg PO DAILY 11/25/21 12/01/21 History furosemide 80 mg tablet 80 mg PO BID 11/25/21 12/01/21 History metoprolol succinate 100 mg 100 mg PO DAILY 11/25/21 12/01/21 History tablet,extended release 24 hr patiromer calcium sorbitex 8.4 8.4 g PO DAILY 11/25/21 12/01/21 History gram oral powder packet (Veltassa) temazepam 30 mg capsule 30 mg PO HS PRN Anxiety 11/25/21 12/01/21 History lisinopril 20 mg tablet 10 mg PO DAILY 12/01/21 12/01/21 History sennosides 8.6 mg-docusate sodium 1 tab-cap PO HS 12/01/21 12/01/21 History 50 mg tablet (Senna-S) Allergies Allergy/AdvReac Type Severity Reaction Status Date / Time Penicillins Allergy Mild Unknown Verified 12/01/21 17:17 Vital Signs Vital Signs Temp Pulse Resp BP Pulse Ox O2 Del Method 12/02/21 08:00 Room Air 12/02/21 10:14 Room Air 12/02/21 04:41 35.6 C L 69 18 152/53 H 95 12/01/21 20:36 32.8 C L 68 17 144/54 H 91 12/01/21 20:35 36.2 C L 68 17 144/54 H 91 12/01/21 20:10 71 18 136/54 L 95 12/01/21 19:17 70 18 139/75 98 12/01/21 18:57 66 20 156/69 H 96 12/01/21 17:06 36.9 C 68 20 141/69 H 98 Room Air Exam Narrative: GENERAL APPEARANCE: well developed well nourished male in no acute distress HEENT: normocephalic, atraumatic, normal conjunctiva and sclera, nares patient NECK: no lymphadenopathy, thyromegaly, or JVD MOUTH: normal lips, teeth, and gums CARDIOVASCULAR: RRR, normal S1 and S2, no rub detected RESPIRATORY: clear to auscultation bilaterally ABDOMEN: soft, nontender, nondistended, positive bowel sounds present EXTREMITIES: no evidence of cyanosis, clubbing, or edema NEUROLOGICAL: alert and oriented x 3; CN II - XII intact bilaterally; no focal deficits noted Results Lab Results Result Diagrams: 12/02/21 06:09 12/02/21 06:09 Lab results: Most recent lab results Calcium 8.9 mg/dL (8.4-10.2) 12/02/21 06:09 Phosphorus 9.2 mg/dL (2.5-4.5) H 12/02/21 06:09
== END 2021-12-02 11:30 | disposition home or self-care (01) | DRG 177 ==
LOC: ANHED 18:20 → ANH3MED 20:03
PROVIDERS: Admitting Provider Student in an Organized Health Care Education/Training Program; Emergency Provider Nurse Practitioner Family; Visit Provider Family Medicine
DX: U07.1 COVID-19 (principal); J12.82 Pneumonia due to coronavirus disease 2019; N18.6 End stage renal disease; I12.0 Hypertensive chronic kidney disease with stage 5 chronic kidney disease or end stage renal disease; E87.1 Hypo-osmolality and hyponatremia; D63.8 Anemia in other chronic diseases classified elsewhere; K80.20 Calculus of gallbladder without cholecystitis without obstruction; E88.09 Other disorders of plasma-protein metabolism, not elsewhere classified; E83.39 Other disorders of phosphorus metabolism; E78.5 Hyperlipidemia, unspecified; W18.2XXA Fall in (into) shower or empty bathtub, initial encounter; R26.89 Other abnormalities of gait and mobility; R53.1 Weakness; Z99.2 Dependence on renal dialysis; Z91.81 History of falling; Z85.528 Personal history of other malignant neoplasm of kidney
CPT/HCPCS: 36415; 71046; 74176; 80053; 81001; 84100; 84145; 85025; 85610; 85730; 93005; 96365; 97161; 97165; 99285; A9270; C9803; G0378; J1644; J1956; U0003; U0005

== ENCOUNTER 2022-04-11 19:50 | Observation (INO) | payer MEDICARE, SELFPAY ==
--- NOTE | ~2022-04-11 | XR_ITS ---
EXAMINATION: XR ankle RT min 3V DATE: 04/12/2022 05:47 INDICATION: Right ankle pain and swelling TECHNIQUE: Anteroposterior, oblique, mortise, and lateral views of the right ankle were obtained. COMPARISON: None. FINDINGS: There is ankylosis across the distal tibiofibular articulation. There are a pair of small fixation pi ns at the medial malleolus and a larger retrograde nail extending from the lateral malleolus into the distal fibular diaphysis. No fracture. Interval progression in severe osteoarthritis at the right an kle. Mild osteoarthritis at a few of the remaining joints in the mid and hindfoot. Soft tissue swelli ng about the ankle. Extensive vascular calcifications at the distal calf extending into the foot. IMPRESSION: 1. Postoperative changes with fixation pins at the medial lateral malleoli and with ankylosis across the distal tibiofibular joint. 2. Progression of severe osteoarthritis at the right ankle joint. Reviewed, dictated and finalized at location A.
[2022-04-11 20:12] VITALS: BP 151/66; PULSE 75; RESP 18; TEMP 36.9; O2SAT 100
--- NOTE | 2022-04-11 21:29 | ED.GENADULT ---
HPI - General Adult General Chief complaint: Recheck/Abnormal Lab/Rx Stated complaint: low hemoglobin Time Seen by Provider: 04/11/22 20:22 History of Present Illness HPI narrative: 76-year-old male with end-stage renal disease and prior history of an upper GI bleed presented to the emergency department for evaluation of anemia. Patient does do peritoneal dialysis at home at 9 PM every night. Patient had follow-up labs today and was found to have a hemoglobin of 6.0. Patient denies any complaints with this. Patient denies any active bleeding. Patient denies any black tarry stool. Patient also has history of anemia of chronic disease and his hemoglobin has been around the 9.0 range. Patient has history of anemia of chronic disease., GI bleed, end-stage renal disease on peritoneal dialysis. Related Data Home Medications Medication Instructions Recorded Confirmed allopurinol 100 mg tablet 100 mg PO DAILY 11/25/21 04/12/22 amlodipine 10 mg tablet 10 mg PO DAILY 11/25/21 04/12/22 docusate sodium 100 mg capsule 200 mg PO BID 11/25/21 04/12/22 escitalopram oxalate 10 mg tablet 10 mg PO HS 11/25/21 04/12/22 furosemide 80 mg tablet 80 mg PO BID 11/25/21 04/12/22 metoprolol succinate 100 mg 100 mg PO DAILY 11/25/21 04/12/22 tablet,extended release 24 hr patiromer calcium sorbitex 8.4 8.4 g PO EVERY OTHER DAY 11/25/21 04/12/22 gram oral powder packet (Veltassa) lisinopril 20 mg tablet 10 mg PO DAILY 12/01/21 04/12/22 ferric citrate 210 mg iron tablet 210 mg PO TID 04/12/22 04/12/22 (Auryxia) pantoprazole 20 mg tablet,delayed 40 mg PO DAILY 04/12/22 04/12/22 release sevelamer carbonate 800 mg tablet 800 mg PO TID 04/12/22 04/12/22 Allergies Allergy/AdvReac Type Severity Reaction Status Date / Time Penicillins Allergy Mild Unknown Verified 04/11/22 19:51 Review of Systems Review of Systems: CONSTITUTIONAL: Denies fever, chills, or sweats. EYES: Denies visual changes, redness, or discharge. ENT: Denies rhinorrhea, congestion, sore throat, or otalgia. CARDIOVASCULAR: Denies chest pain, palpitations, or edema. RESPIRATORY: Denies cough or dyspnea. GASTROINTESTINAL: Denies abdominal pain, nausea, vomiting, or diarrhea. GENITOURINARY: Denies dysuria or hematuria. SKIN: Denies rash or itching. MUSCULOSKELETAL: Denies back pain, joint pain, or myalgia. NEUROLOGIC: Denies headache, numbness, or weakness. PSYCHIATRIC: Denies anxiety or depression. [facility] Past Medical History Medical History Anemia of chronic disease Cancer of kidney End-stage renal disease on peritoneal dialysis Hyperlipidemia Hypertension Surgical History Surgical History History of nephrectomy History of open reduction and internal fixation (ORIF) procedure Repair of right hand and right ankle fractures. Peritoneal dialysis catheter in place Family History Family History Father Cardiovascular disease Mother Asthma Social History Social History Social History: Surrogate decision maker: Carine Vaughn, spouse. Code status: Full code. Smoking status: Never smoker Alcohol intake: never Substance use: never Spiritual care concerns: No Exam Narrative: APPEARANCE: Well appearing, no pain, no distress, well-nourished. HEAD: normocephalic, atraumatic. EYES: PERRLA/EOMI, conjunctivae clear. NOSE: Normal no drainage NECK: Supple. No adenopathy, no masses. RESPIRATORY: Airway patent, respirations nonlabored. Clear to auscultation bilaterally, no rales, rhonchi, wheezing. CARDIOVASCULAR: Regular rate and rhythm without murmurs rubs or gallops. ABDOMINAL: Soft, nontender, nondistended, normal bowel sounds MUSCULOSKELETAL: Moves all extremities. Strength/ROM intact, No edema, No calf tenderness. NEURO: Alert. Cranial nerves II
[2022-04-11 22:15] LABS: Basophils Percent Auto 0.1 % (0.2-1.2); Eosinophils Absolute Auto 0.3 K/mm3 (0-0.3); Immature Granulocyte Absolute 0.09 K/mm3 (0.00-0.031); Lymphocytes Absolute Auto 1.55 K/mm3 (0.9-3.2); Lymphocytes Percent Auto 16.8 % (18.3-44.2); Mean Corpuscular HGB Conc 31.2 g/dl (32-36); Mean Corpuscular Hemoglobin 32.6 pg (26-34); Mean Corpuscular Volume 104.7 fl (80-100); Mean Platelet Volume 10.8 fl (7.4-10.4); Monocytes Percent Auto 10.8 % (2.6-8.5); Neutrophils Absolute Auto 6.3 K/mm3 (1.3-6.7); Neutrophils Percent Auto 68.3 % (45.5-73.1); Platelet Count Result 193 k/mm3 (150-375); Red Blood Count 1.93 M/mm3 (4.6-6.20); White Blood Count 9.2 K/mm3 (4.5-10.0)
[2022-04-11 22:19] LABS: Hemoglobin 6.3 g/dL (14.0-18.0)
[2022-04-11 22:20] LABS: Hematocrit 20.2 % (42.0-52.0)
[2022-04-11 22:28] LABS: INR 1.4; Prothrombin Time 16.4 Seconds (11.1-14.7)
[2022-04-11 22:29] LABS: Partial Thromboplastin Time 35.1 SECONDS (22.3-36.8)
[2022-04-11 22:33] LABS: Alanine Aminotransferase 12 U/L (6-50); Albumin Level 2.9 g/dL (3.5-5.1); Alkaline Phosphatase 79 U/L (38-126); Anion Gap 19 mmol/L (8-16); Aspartate Amino Transferase 11 U/L (17-59); Bilirubin,Total 0.3 mg/dL (0.2-1.3); Blood Urea Nitrogen 70 mg/dL (9-20); Calcium 8.9 mg/dL (8.4-10.2); Carbon Dioxide 23 mmol/L (22-30); Chloride 92 mmol/L (98-107); Estimated CRCL calculation 3 ml/min; Estimated Glomerular Filt Rate 3; Glucose 131 mg/dL (65-110); Potassium 4.7 mmol/L (3.4-5.0); Sodium 134 mmol/L (137-145)
--- NOTE | 2022-04-11 22:58 | PM.IMHP ---
H&P: HPI History of Present Illness Date/Time: 04/11/22 22:59 Chief Complaint: generalized weakness Narrative: This is a 76-year-old male with past medical history significant for end-stage renal disease on peritoneal dialysis , anemia of chronic disease, recent COVID,patient presents to the emergency room due to generalized weakness. patient presents to the emergency room after outpatient lab work showed a drop in his hemoglobin at 6.3. patient had the hospitalization in November of this year to [facility] due to fall at the time patient was found to have COVID 19 positive. patient had a vomit at home, denies any diarrhea, any blood in the stools, no hematemesis, has had generalized itching, poor appetite, denies any fevers, rigors, chills, however feels called, no cough, no sputum production. patient has been admitted for further evaluation management and treatment. Review of Systems Review of Systems: Generalized weakness, abnormal lab work. Constitutional: Constitutional: Denies chills, Reports fatigue, Denies fever(s), Reports lethargy, Denies malaise, Denies night sweats, Reports poor appetite, Reports weakness and Denies weight loss Eyes: Eyes: Denies change in vision ENT: Denies dysphagia, Denies vertigo and Denies dizziness Cardiovascular: Cardiovascular: Denies syncope, Denies irregular heart rhythm, Denies lightheadedness and Denies palpitations Respiratory: Respiratory: Denies chest congestion, Denies cough, Denies excessive phlegm production, Denies pain on inspiration, Denies dyspnea and Denies dyspnea on exertion Gastrointestinal: Gastrointestinal: Denies abdominal pain, Denies dyspepsia, Denies heartburn, Denies diarrhea, Reports nausea and Reports vomiting Genitourinary: Genitourinary: Reports no additional male genitourinary complaints, Reports as per HPI and Reports dysuria Musculoskeletal: Musculoskeletal: Reports deformity, Reports arthralgias, Reports joint swelling and Reports other ( right ankle) Integumentary/Breasts: Skin/Breast: Reports dry skin, Reports pruritus and Denies rash Neurologic: Denies vertigo, Denies dizziness, Denies focal weakness and Denies Sensory deficit (Neuro) Psychiatric: Psychiatric: Reports no additional psychiatric complaints and Reports as per HPI Endocrine: Endocrine: Denies cold intolerance, Denies flushing, Denies heat intolerance, Denies polyphagia, Denies polydipsia and Denies palpitations Hematologic/Lymphatic: Hematologic/Lymphatic: Reports no additional hematologic/lymphatic complaints and Reports as per HPI Allergic/Immunologic: Allergic/Immunologic: Reports no additional allergic/immunologic complaints and Reports as per HPI PMFSH Past Medical History Medical History Anemia of chronic disease Cancer of kidney End-stage renal disease on peritoneal dialysis Hyperlipidemia Hypertension Surgical History Surgical History History of nephrectomy History of open reduction and internal fixation (ORIF) procedure Repair of right hand and right ankle fractures. Peritoneal dialysis catheter in place Family History Family History Father Cardiovascular disease Mother Asthma Social History Social History Social History: Surrogate decision maker: Carine Roderick, spouse. Code status: Full code. Smoking status: Never smoker Alcohol intake: never Substance use: never Spiritual care concerns: No Meds Home Medications and Allergies Home Medications Medication Instructions Recorded Confirmed Type acetaminophen 650 mg 650 mg PO Q12H PRN pain #10 tabs 01/05/21 04/12/22 Rx tablet,extended release (Tylenol Arthritis Pain) allopurinol 100 mg tablet 100 mg PO DAILY 11/25/21 04/12/22 History amlodipine 10 mg tablet 10 mg PO DA
[2022-04-12] VITALS (12 sets, daily range): BP systolic 141–186; BP diastolic 63–99; PULSE 71–88; RESP 14–18; TEMP 36.2–36.6; O2SAT 96–100
[2022-04-12 00:51] LABS: SARS-CoV-2 RNA PCR Negative
--- NOTE | 2022-04-12 01:41 | ADMGEN ---
This patient, John Vaughn, was admitted to 3 Med Surg Room 326-01. Patient/family oriented to hospital policies and general routines including ID bracelet, bed and alarms, visiting hours, pain management, procedures, bathroom and other care routines, personal items, smoking policy, room service/diet, and visiting hours. Information on how to activate the Rapid Response Team has been discussed. Patient/Family are encouraged to report perceived risks to care and to ask questions if they do not understand what they are told or what they should do.
[2022-04-12] MEDS: SODIUM CHLORIDE 0.9% IV 250 ML 30 ML IV CONT (04:35)
[2022-04-12] MEDS: TUBING, BLOOD PLUM PUMP TUBING 1 EACH XX (04:35)
[2022-04-12 08:04] LABS: Basophils Percent Auto 0.3 % (0.2-1.2); Eosinophils Absolute Auto 0.3 K/mm3 (0-0.3); Eosinophils Percent Auto 3.1 % (0-4.4); Hematocrit 28.5 % (42.0-52.0); Immature Granulocyte Absolute 0.08 K/mm3 (0.00-0.031); Immature Granulocyte Percent A 0.9 % (0-0.5); Lymphocytes Absolute Auto 1.79 K/mm3 (0.9-3.2); Lymphocytes Percent Auto 19.6 % (18.3-44.2); Mean Corpuscular HGB Conc 31.6 g/dl (32-36); Mean Corpuscular Hemoglobin 31.5 pg (26-34); Mean Corpuscular Volume 99.7 fl (80-100); Mean Platelet Volume 10.9 fl (7.4-10.4); Monocytes Percent Auto 11.3 % (2.6-8.5); Neutrophils Absolute Auto 5.9 K/mm3 (1.3-6.7); Neutrophils Percent Auto 64.8 % (45.5-73.1); Platelet Count Result 203 k/mm3 (150-375); Red Blood Count 2.86 M/mm3 (4.6-6.20); Red Cell Distribution Width 14.9 % (11.5-14.5); White Blood Count 9.1 K/mm3 (4.5-10.0)
--- NOTE | 2022-04-12 08:20 | PM.CNNEP ---
Assessment and Plan Assessment and plan (1) End-stage renal disease on peritoneal dialysis: Code(s): N18.6 - End stage renal disease; Z99.2 - Dependence on renal dialysis Status: Acute Assessment and Plan: the patient has end-stage renal disease. He is on peritoneal dialysis. Flows are good in fluid is clear he says. No belly pain. Will do peritoneal dialysis tonight if he is still here (2) Hypertension: Code(s): I10 - Essential (primary) hypertension Status: Chronic Assessment and Plan: the patient has hypertension. His blood pressure is generous. Will restart his outpatient medications and see how the trend is. (3) Erythropoietin deficiency anemia: Code(s): D63.1 - Anemia in chronic kidney disease Status: Acute Assessment and Plan: The patient has anemia. He took a sudden dropped from about 10 to about 7. He got 1unit of blood and suddenly the hemoglobin is above 9 now. I wonder if the hemoglobin was not ever as low as it seemed on the labs. Will order stool Hemoccult. I reached out to Dr. Contreras to let her know about how the hemoglobin dropped. (4) Osteoarthritis of right ankle and foot: Code(s): M19.071 - Primary osteoarthritis, right ankle and foot Status: Acute Assessment and Plan: The patient has arthritis in the right ankle and foot. History of Present Illness Reason for Consult Consult date: 04/12/22 Chief Complaint Chief complaint: Anemia of Chronic Disease History of Present Illness Narrative: John is a very pleasant 76-year-old who has multiple medical problems includingEnd-stage renal disease on peritoneal dialysis, anemia of chronic kidney disease, renal osteodystrophy, recent COVID, history of GI bleed in November, hypertension, and hyperlipidemia. He is followed closely at the [facility] clinic at [facility]. They have been checking his hemoglobin since he left in November. It has been around [address] up until the beginning of March. Then he started complaining of weakness and shortness of breath so the repeat is hemoglobin and it was down to 6.2. They asked him to go to [place] [facility] to get transfused but they came here instead. The patient has had some shortness of breath and weakness for about a week. He denies any chest pain. He denies any bloody stools or black stools. He watches every time he has a bowel movement. He has not had any nausea or vomiting and needless to say no black or bloody vomitus. His watch him very closely as well and has not seen any blood. Review of Systems Constitutional: Constitutional: Reports no additional constitutional complaints Eyes: Eyes: Reports no additional eye complaints ENT: Reports system reviewed and no additional complaints, except as documented Cardiovascular: Cardiovascular: Reports no additional cardiovascular complaints Respiratory: Respiratory: Reports no additional respiratory complaints Gastrointestinal: Gastrointestinal: Reports no additional gastrointestinal complaints Genitourinary: Genitourinary: Reports no additional male genitourinary complaints Musculoskeletal: Musculoskeletal: Reports no additional musculoskeletal complaints Integumentary/Breasts: Skin/Breast: Reports system reviewed and no additional complaints, except as docu Neurologic: Reports system reviewed and no additional complaints, except as documented Psychiatric: Psychiatric: Reports no additional psychiatric complaints Endocrine: Endocrine: Reports no additional endocrine complaints [facility] Past Medical History Medical History (Updated 04/12/22 @ 13:57 by Onur Torres MD) Anemia of chronic disease Cancer of kidney End-stage renal disease on peritoneal dialysis Erythropoietin deficiency anemia Hyperlipidemia Hypertension Osteoarthritis of right ankle and foot Right ankle swelling Surgical History Surgical History (Reviewed 04/12/22 @ 13:56 by Onur Torres
[2022-04-12] MEDS: METOPROLOL SUCCINATE EXT REL 100 MG TABCR PO (08:24)
[2022-04-12] MEDS: PANTOPRAZOLE 40 MG TABLET PO (08:24)
[2022-04-12] MEDS: allopurinoL 100 MG TABLET PO (08:24)
[2022-04-12] MEDS: lisinopriL 10 MG TABLET PO (08:25)
[2022-04-12] MEDS: FUROSEMIDE 80 MG TABLET PO (08:25)
[2022-04-12] MEDS: amLODIPine BESYLATE 5 MG TABLET 10 MG PO (08:25)
[2022-04-12 08:39] LABS: Estimated CRCL calculation 3 ml/min; Estimated Glomerular Filt Rate 3
[2022-04-12 08:40] LABS: Alanine Aminotransferase 13 U/L (6-50); Albumin Level 3.3 g/dL (3.5-5.1); Alkaline Phosphatase 75 U/L (38-126); Anion Gap 19 mmol/L (8-16); Aspartate Amino Transferase 14 U/L (17-59); Bilirubin,Total 0.6 mg/dL (0.2-1.3); Blood Urea Nitrogen 75 mg/dL (9-20); Calcium 9.5 mg/dL (8.4-10.2); Carbon Dioxide 21 mmol/L (22-30); Chloride 94 mmol/L (98-107); Glucose 96 mg/dL (65-110); Sodium 134 mmol/L (137-145)
[2022-04-12] MEDS: diphenhydrAMINE HCl INJ 50 MG/ML VIAL 25 MG IV PUSH (09:28)
[2022-04-12 10:20] LABS: IFOB Positive Control Positive; Immunochemical Fecal Occult Bl Negative (N)
--- NOTE | 2022-04-12 10:23 | PM.DS ---
DS: Admitting Diagnosis Discharge Date 04/12/22 Admitting Diagnosis (1) Acute on chronic anemia: ?Code(s): D64.9 - Anemia, unspecified ?Status:?Acute ?Assessment and Plan: (2) Anemia of chronic disease: ?Code(s): D63.8 - Anemia in other chronic diseases classified elsewhere ?Status:?Acute ?Assessment and Plan: (3) End-stage renal disease on peritoneal dialysis: ?Code(s): N18.6 - End stage renal disease; Z99.2 - Dependence on renal dialysis ?Status:?Acute ?Assessment and Plan: ? (4) Right ankle swelling: ?Code(s): M25.471 - Effusion, right ankle ?Status:?Acute ?Assessment and Plan: DS: Discharge Diagnosis Discharge Diagnosis (1) Right ankle swelling: Code(s): M25.471 - Effusion, right ankle Status: Acute (2) Acute on chronic anemia: Code(s): D64.9 - Anemia, unspecified Status: Acute (3) Transfusion of blood during current hospitalisation: Status: Acute (4) End-stage renal disease on peritoneal dialysis: Code(s): N18.6 - End stage renal disease; Z99.2 - Dependence on renal dialysis Status: Acute (5) Hypertension: Code(s): I10 - Essential (primary) hypertension Status: Chronic (6) Osteoarthritis of right ankle and foot: Code(s): M19.071 - Primary osteoarthritis, right ankle and foot Status: Acute DS: Summary Hospital Course Reason for hospitalization: ?generalized weakness Hospital Course: pt admitted for acute on chronic anemia, he was transfused on unit PRBC and administered recrit, Hgb improved to > 9. SFOB was negative and pt and his confirmed they have not seen any bleeding from GI system. He has chronic arthritic changes on XR of RLE. He is discharged to care of his PCP in stable condition. I defer care of his chronic diseases to his PCP who will see him within the hour. Status at Discharge Cognitive/behavioral status at discharge: baseline Functional status at discharge: independent ambulation Time Spent with Patient Time attestation: Total time spent providing and/or coordinating discharge services: DS: Data Data Completed and Pending Labs on day of discharge: Labs from last 24 hours 04/12/22 04/12/22 04/12/22 09:28 07:50 07:50 WBC 9.1 RBC 2.86 L Hgb 9.0 L Hct 28.5 L MCV 99.7 MCH 31.5 MCHC 31.6 L RDW 14.9 H Plt Count 203 MPV 10.9 H Immature Gran % (Auto) 0.9 H Neut % (Auto) 64.8 Lymph % (Auto) 19.6 [place] % (Auto) 11.3 H Eos % (Auto) 3.1 Baso % (Auto) 0.3 Lymph # (Auto) 1.79 [place] # (Auto) 1.0 H Eos # (Auto) 0.3 Baso # (Auto) 0.0 Abs Immat Gran (auto) 0.08 H Absolute Neuts (auto) 5.9 Absolute Nucleated RBC 0.0 Nucleated RBC % 0.0 PT INR APTT Sodium 134 L Potassium 5.0 Chloride 94 L Carbon Dioxide 21 L Anion Gap 19 H BUN 75 H Creatinine 15.90 H Estim Creat Clear Calc 3 Estimated GFR 3 L Glucose 96 Calcium 9.5 Total Bilirubin 0.6 AST 14 L ALT 13 Alkaline Phosphatase 75 Total Protein 6.0 L Albumin 3.3 L Stl Occult Blood (IFOB) Negative SARS-CoV-2 RNA (RT-PCR) Blood Type Antibody Screen Antibody Identification Antigen Identification RANDY, IgG Interpret RANDY, Poly Interpret RANDY, Complement Interp Enhanced Crossmatch 04/12/22 04/11/22 04/11/22 00:07 22:06 22:06 WBC RBC Hgb Hct MCV MCH MCHC RDW Plt Count MPV Immature Gran % (Auto) Neut % (Auto) Lymph % (Auto) [place] % (Auto) Eos % (Auto) Baso % (Auto) Lymph # (Auto) [place] # (Auto) Eos # (Auto) Baso # (Auto) Abs Immat Gran (auto) Absolute Neuts (auto) Absolute Nucleated RBC Nucleated RBC % PT INR APTT Sodium 134 L Potassium 4.7 Chloride 92 L Carbon Dioxide 23 Anion Gap 19 H BUN 70 H Creatinine 15.80 H E
--- NOTE | 2022-04-12 10:41 | PC.NURSE ---
patient very adamant about leaving today now that blood is done and hemoglobin improved. Patient has appointment at Dr. Callejas;s office at 1100. family asking to be able to discharge now and go to Dr. Callejas's office for appointment. Dr. Contreras states that she will discharge patient as long as ifob is negative. test result is negative and patient is leaving to go to appointment.
--- NOTE | 2022-04-12 14:00 | PM.EVENT ---
Event Note Event Note Event Note: Patient is on peritoneal dialysis. Tolerating it well. He was seen at 8:15 a.m.
== END 2022-04-12 10:44 | disposition home or self-care (01) ==
LOC: ANHED 23:18 → ANH3MEDSUR 04-12 10:22
PROVIDERS: Internal Medicine Nephrology; Admitting Provider Internal Medicine; Emergency Provider Emergency Medicine; PCP Family Medicine; Visit Provider Hospitalist
DX: I12.0 Hypertensive chronic kidney disease with stage 5 chronic kidney disease or end stage renal disease (principal); N18.6 End stage renal disease; Z99.2 Dependence on renal dialysis; D63.1 Anemia in chronic kidney disease; E78.5 Hyperlipidemia, unspecified; E87.8 Other disorders of electrolyte and fluid balance, not elsewhere classified; Z20.822 Contact with and (suspected) exposure to COVID-19; Z90.5 Acquired absence of kidney; M25.471 Effusion, right ankle; M19.071 Primary osteoarthritis, right ankle and foot; Z68.24 Body mass index [BMI] 24.0-24.9, adult; Z85.528 Personal history of other malignant neoplasm of kidney; Z86.16 Personal history of COVID-19; Z82.49 Family history of ischemic heart disease and other diseases of the circulatory system; Z79.1 Long term (current) use of non-steroidal anti-inflammatories (NSAID); Z79.899 Other long term (current) drug therapy
CPT/HCPCS: 36415; 36430; 73610; 80053; 82274; 85025; 85610; 85730; 86850; 86880; 86900; 86901; 86902; 86922; 96374; 99285; A9270; C9803; G0378; J1200; J7050; P9016; U0003; U0005

== ENCOUNTER 2022-04-21 20:04 | Emergency (ER) | payer MEDICARE, SELFPAY ==
[2022-04-21 20:08] VITALS: BP 152/80; PULSE 70; RESP 16; TEMP 36.6; O2SAT 95
--- NOTE | 2022-04-21 20:51 | ED.GIBLEED ---
HPI - GI Bleed General Chief complaint: GI Bleed Stated complaint: coffee ground emesis Time Seen by Provider: 04/21/22 20:51 History of Present Illness HPI Narrative: Patient is a 76-year-old male with a history of ESRD on peritoneal dialysis, hypertension, hyperlipidemia, GI bleed presenting with vomiting. Patient states that he ate Armenian tonight and then he had 3 episodes of emesis. Patient's family was concerned that there was blood in the vomit given his history of upper GI bleeds. He was recently admitted due to anemia with a hemoglobin of 6. Patient denies melena or hematochezia. He denies fevers, chest pain, shortness of breath, lightheadedness, abdominal pain, diarrhea. Currently states that he feels well. Related Data Home Medications Medication Instructions Recorded Confirmed allopurinol 100 mg tablet 100 mg PO DAILY 11/25/21 04/12/22 amlodipine 10 mg tablet 10 mg PO DAILY 11/25/21 04/12/22 docusate sodium 100 mg capsule 200 mg PO BID 11/25/21 04/12/22 escitalopram oxalate 10 mg tablet 10 mg PO HS 11/25/21 04/12/22 furosemide 80 mg tablet 80 mg PO BID 11/25/21 04/12/22 metoprolol succinate 100 mg 100 mg PO DAILY 11/25/21 04/12/22 tablet,extended release 24 hr patiromer calcium sorbitex 8.4 8.4 g PO EVERY OTHER DAY 11/25/21 04/12/22 gram oral powder packet (Veltassa) lisinopril 20 mg tablet 10 mg PO DAILY 12/01/21 04/12/22 ferric citrate 210 mg iron tablet 210 mg PO TID 04/12/22 04/12/22 (Auryxia) pantoprazole 20 mg tablet,delayed 40 mg PO DAILY 04/12/22 04/12/22 release sevelamer carbonate 800 mg tablet 2,400 mg PO TID 04/12/22 04/12/22 Allergies Allergy/AdvReac Type Severity Reaction Status Date / Time Penicillins Allergy Mild Unknown Verified 04/21/22 20:57 Review of Systems Review of Systems: All systems reviewed & are unremarkable except as noted in HPI and below PMFSH Past Medical History Medical History Anemia of chronic disease Cancer of kidney End-stage renal disease on peritoneal dialysis Erythropoietin deficiency anemia Hyperlipidemia Hypertension Osteoarthritis of right ankle and foot Right ankle swelling Surgical History Surgical History History of nephrectomy History of open reduction and internal fixation (ORIF) procedure Repair of right hand and right ankle fractures. Peritoneal dialysis catheter in place Family History Family History Father Cardiovascular disease Mother Asthma Social History Social History Social History: Surrogate decision maker: Carine Vaughn, spouse. Code status: Full code. Smoking status: Never smoker Alcohol intake: never Substance use: never Spiritual care concerns: No Exam Narrative: GENERAL: Well-appearing, well-nourished, and in no acute distress. HEAD: Normocephalic, atraumatic. EYES: PERRLA and EOMI. ENT: Nares clear, no rhinorrhea or epistaxis. Mucous membranes moist. NECK: Supple. CHEST: Clear to auscultation. No respiratory distress. HEART: Regular rate and rhythm. No murmur heard. Normal peripheral pulses. ABDOMEN: Soft, nontender, nondistended, normal active bowel sounds. Peritoneal dialysis catheter in place with clean dressing EXTREMITIES: Normal range of motion. No edema. SKIN: Warm, dry, no rash. NEURO: No focal deficits. Alert and oriented x3. PSYCH: Normal mood and affect. Course Course Emergency Course: Patient is a 76-year-old male with history as above presenting with emesis. Patient is hypertensive, his vitals are within normal limits. Exam remarkable for the above. Patient's has a picture of his earlier emesis. Appears light brown in color. No evidence of coffee-ground emesis or blood. Blood work is at baseline. Hemoglobin has actually increased slightly sin
[2022-04-21 21:11] LABS: Basophils Percent Auto 0.1 % (0.2-1.2); Eosinophils Absolute Auto 0.3 K/mm3 (0-0.3); Hematocrit 30.2 % (42.0-52.0); Hemoglobin 9.6 g/dL (14.0-18.0); Immature Granulocyte Absolute 0.04 K/mm3 (0.00-0.031); Immature Granulocyte Percent A 0.4 % (0-0.5); Lymphocytes Absolute Auto 1.16 K/mm3 (0.9-3.2); Lymphocytes Percent Auto 12.4 % (18.3-44.2); Mean Corpuscular HGB Conc 31.8 g/dl (32-36); Mean Corpuscular Hemoglobin 31.3 pg (26-34); Mean Corpuscular Volume 98.4 fl (80-100); Mean Platelet Volume 10.4 fl (7.4-10.4); Monocytes Absolute Auto 0.9 K/mm3 (0.1-0.6); Monocytes Percent Auto 9.6 % (2.6-8.5); Neutrophils Percent Auto 74.5 % (45.5-73.1); Platelet Count Result 233 k/mm3 (150-375); Red Blood Count 3.07 M/mm3 (4.6-6.20); Red Cell Distribution Width 14.6 % (11.5-14.5); White Blood Count 9.4 K/mm3 (4.5-10.0)
[2022-04-21 21:21] LABS: INR 1.3; Partial Thromboplastin Time 31.8 SECONDS (22.3-36.8); Prothrombin Time 15.5 Seconds (11.1-14.7)
[2022-04-21 21:22] LABS: Alanine Aminotransferase 13 U/L (6-50); Albumin Level 3.4 g/dL (3.5-5.1); Alkaline Phosphatase 89 U/L (38-126); Anion Gap 19 mmol/L (8-16); Aspartate Amino Transferase 14 U/L (17-59); Bilirubin,Total 0.8 mg/dL (0.2-1.3); Blood Urea Nitrogen 66 mg/dL (9-20); Calcium 9.6 mg/dL (8.4-10.2); Carbon Dioxide 22 mmol/L (22-30); Chloride 99 mmol/L (98-107); Glucose 106 mg/dL (65-110); Potassium 4.4 mmol/L (3.4-5.0); Sodium 140 mmol/L (137-145)
[2022-04-21 21:27] LABS: Estimated CRCL calculation 3 ml/min; Estimated Glomerular Filt Rate 3
== END 2022-04-21 21:45 | disposition home or self-care (01) ==
PROVIDERS: Emergency Provider Emergency Medicine; PCP Family Medicine
DX: R11.2 Nausea with vomiting, unspecified (principal); I12.0 Hypertensive chronic kidney disease with stage 5 chronic kidney disease or end stage renal disease; N18.6 End stage renal disease; Z99.2 Dependence on renal dialysis; D63.1 Anemia in chronic kidney disease; E78.5 Hyperlipidemia, unspecified; Z85.528 Personal history of other malignant neoplasm of kidney; Z90.5 Acquired absence of kidney
CPT/HCPCS: 36415; 80053; 85025; 85610; 85730; 86850; 86880; 86900; 86901; 86902; 99283